=== PATIENT | male | born 1940 | race Caucasian/White ===

== ENCOUNTER 2017-08-13 08:13 | Emergency (ER) | payer MEDICARE ==
[~2017-08-13] VITALS: Ht 172.7 cm; Wt 68.0 kg
[~2017-08-13 08:13] MED LIST: FOLI5CAP PO; PROP40TA3 PO; SPIRCAP INH; VYTO10TA27 PO
[2017-08-13 08:28] VITALS: BP 134/62; PULSE 75; RESP 16; TEMP 97.9; O2SAT 98
[2017-08-13] MEDS ORDERED: FOLI400T PO (10:17)
[2017-08-13] MEDS ORDERED: CLIN150C14 PO (10:35)
--- NOTE | 2017-08-13 10:36 | PD ---
HPI Chief Complaint: Injury Time Seen by Provider: 10:30 Travel History International Travel<30 days: No Contact w/Intl Traveler<30days: No Traveled to known affect area: No History of Present Illness HPI 77-year-old male presents emergency with complaint of redness, swelling and drainage from the right elbow wound after tripping on a step and falling 6 days ago. Says he scraped his elbow on rug getting a "rug burn." Denies hitting his head or loss of consciousness. Denies neck pain or back pain. Has been ambulatory since. Denies anticoagulant therapy. Denies decreased range of motion, decreased strength, Paresthesias, loss of sensation of the affected extremity. Denies fever, vomiting. Has been using topical antibiotic ointment for wound care. Reports being up-to-date on tetanus vaccination. Allergies to penicillin. Dr. Garcia is primary care provider. Symptoms are mild in severity. Has no other medical complaints. No other modifying factors or associated signs and symptoms. PFSH Past Medical History Arthritis: Yes Asthma: No Autoimmune Disease: No Heart Rhythm Problems: No Cancer: No Cardiovascular Problems: Yes High Cholesterol: Yes Chest Pain: No Congestive Heart Failure: No COPD: Yes (Emphysema) Diminished Hearing: No Endocrine: No Genitourinary: No Hypertension: Yes Immune Disorder: No Musculoskeletal: Yes Neurologic: No Psychiatric: No Respiratory: Yes Sleep Apnea: No Past Surgical History Appendectomy: Yes Oral Surgery: Yes (Dental implants) Tonsillectomy: Yes Other Surgery: Yes (skin cancer) Social History Alcohol Use: Yes (3-4 beers daily) Tobacco Use: No Substance Use: No Allergies-Medications (Allergen,Severity, Reaction): Coded Allergies: penicillin G (Unverified Allergy, Severe, Hives, 08/13/17) Reported Meds & Prescriptions Reported Meds & Active Scripts Active Clindamycin (Clindamycin HCl) 150 Mg Cap 450 Mg PO Q6H 10 Days Reported Folic Acid 0.4 Mg Tab 400 Mcg PO DAILY Spiriva Handihaler (Tiotropium Inh) 18 Mcg Cap 18 Mcg INH DAILY 1 capsule = 18 mcg Vytorin (Ezetimibe-Simvastatin) 10-10 Mg Tab 1 Tab PO HS Propranolol (Propranolol HCl) 40 Mg Tab 40 Mg PO Q12HR Review of Systems Except as stated in HPI: all other systems reviewed are Neg Physical Exam Narrative GENERAL: Well-nourished, well-developed elderly, male patient, in no acute distress SKIN: Warm and dry. Right lateral forearm/elbow area with large skin tear/ avulsion with minimal amount of purulent drainage and with mild surrounding erythema and edema. No right axillary lymphadenopathy. No lymphangitis. HEAD: Atraumatic. Normocephalic. EYES: Pupils equal and round. No scleral icterus. No injection or drainage. ENT: Mucosa pink and moist. Airway patent. NECK: Trachea midline. CARDIOVASCULAR: Regular rate. RESPIRATORY: No accessory muscle use. GASTROINTESTINAL: Flat. MUSCULOSKELETAL: Right elbow with full range of motion; with edema; with erythema; without tenderness on palpation; with full vice president of marketing strength; sensory intact; 2+ radial pulse. Right Upper extremity supple and nontense with 2+ radial pulse and sensory intact. No obvious deformities. No clubbing. No cyanosis. No edema. NEUROLOGICAL: Awake and alert. Oriented 3. No obvious cranial nerve deficits. Motor grossly within normal limits. Normal speech. PSYCHIATRIC: Appropriate mood and affect; insight and judgment normal. Data Data Last Documented VS Vital Signs Date Time Temp Pulse Resp B/P (MAP) Pulse Ox O2 Delivery O2 Flow Rate FiO2 08/13/17 08:28 97.9 75 16 134/62 (86) 98 Orders Orders Ed Discharge Order (08/13/17 10:36) Wound Care (08/13/17 10:36) Wound Culture And Gram Stain (08/13/17 10:36) [facility] Medical Decision Making Medical Screen Exam Complete: Yes Emergency Medical Condition: Yes Medical Record Reviewed: Yes Differential Diagnosis Abrasion, avulsion, skin tear, wound infection Narrative Course 77-year-old male with of infected wound to his right forearm, elbow area after mechanical fall today 6 days ago. She is afebrile and nontoxic-appearing. He denies fever, vomiting. Wound culture pending. Wound care provided. Patient penicillin allergic. Clindamycin prescribed for home. Instructed patient to follow up with primary care provider. Patient verbalizes understanding and agreement with treatment plan. Patient is medically cleared and stable for discharge. Discussed reasons to return to the emergency department. Patient agrees with treatment plan. The patients vital signs are stable and the patient is stable for outpatient follow-up and treatment. Patient discharged home, stable and in no acute distress. Diagnosis Primary Impression: Wound infection Referrals: Primary Care Physician Patient Instructions: Acute Wound Care (DC), General Instructions, Wound Infection (ED) Additional Instructions: Oral antibiotics as prescribed Keep area clean and dry Topical antibiotic as directed and as needed for wound care Prefer to discharge instructions for acute wound care Keep area covered with bandage; change dressing 1-2 times daily or as needed Follow-up with primary care provider Return to the emergency department immediately with worsening of symptoms, particularly as discussed Med/Other Pt SpecificInfo: Prescription(s) given Scripts Clindamycin (Clindamycin) 150 Mg Cap 450 MG PO Q6H for Infection for 10 Days, #120 CAP 0 Refills Prov: Catherine Jeronimo 08/13/17 Disposition: 01 DISCHARGE HOME Condition: Stable Catherine Jeronimo Aug 13, 2017 10:36
== END 2017-08-13 10:56 | disposition home or self-care (01) ==
LOC: PHED 08:13 → PHEFT 10:56
DX: L08.89 Other specified local infections of the skin and subcutaneous tissue (principal); B95.7 Other staphylococcus as the cause of diseases classified elsewhere; J44.9 Chronic obstructive pulmonary disease, unspecified; I10 Essential (primary) hypertension; E78.00 Pure hypercholesterolemia, unspecified; X58.XXXA Exposure to other specified factors, initial encounter; W10.9XXA Fall (on) (from) unspecified stairs and steps, initial encounter; Z88.0 Allergy status to penicillin; Z79.899 Other long term (current) drug therapy
CPT/HCPCS: 86403; 87070; 87077; 87186; 99283

== ENCOUNTER 2017-08-16 18:31 | Emergency (ER) | payer MEDICARE ==
[~2017-08-16] VITALS: Ht 172.7 cm; Wt 68.1 kg
[~2017-08-16 18:31] MED LIST changes: +CLIN150C14 PO; +FOLI400T PO; -FOLI5CAP PO
[2017-08-16 19:10] VITALS: BP 161/65; PULSE 84; RESP 16; TEMP 97.9; O2SAT 96
[2017-08-16] MEDS ORDERED: BACT800T5 PO (20:51)
--- NOTE | 2017-08-16 20:51 | PD ---
HPI Chief Complaint: Skin Problem Time Seen by Provider: 20:41 Travel History International Travel<30 days: No Contact w/Intl Traveler<30days: No Traveled to known affect area: No History of Present Illness HPI The patient is a 77-year-old male that complains of redness swelling and drainage having tripped on a step and falling 9 days ago. He scraped his right elbow on a rug getting a "rug burn". He was put on clindamycin 450 mg 4 times a day and he has been taking it correctly. He apparently has not been elevating his right arm. Dr. Greer his primary care provider. He comes in today because of the swelling. The redness is disappearing. He noticed swelling around the elbow area. PFSH Past Medical History Arthritis: Yes Asthma: No Autoimmune Disease: No Heart Rhythm Problems: No Cancer: No Cardiovascular Problems: Yes (htn on meds) High Cholesterol: Yes Chest Pain: No Congestive Heart Failure: No COPD: Yes (Emphysema) Diminished Hearing: No Endocrine: No Genitourinary: No Hypertension: Yes Immune Disorder: No Musculoskeletal: Yes Neurologic: No Psychiatric: No Respiratory: Yes (copd) Sleep Apnea: No Past Surgical History Appendectomy: Yes Oral Surgery: Yes (Dental implants) Tonsillectomy: Yes Other Surgery: Yes (skin cancer) Social History Alcohol Use: Yes (3-4 beers daily) Tobacco Use: No Substance Use: No Allergies-Medications (Allergen,Severity, Reaction): Coded Allergies: penicillin G (Unverified Allergy, Severe, Hives, 08/16/17) Reported Meds & Prescriptions Reported Meds & Active Scripts Active Clindamycin (Clindamycin HCl) 150 Mg Cap 450 Mg PO Q6H 10 Days Reported Folic Acid 0.4 Mg Tab 400 Mcg PO DAILY Spiriva Handihaler (Tiotropium Inh) 18 Mcg Cap 18 Mcg INH DAILY 1 capsule = 18 mcg Vytorin (Ezetimibe-Simvastatin) 10-10 Mg Tab 1 Tab PO HS Propranolol (Propranolol HCl) 40 Mg Tab 40 Mg PO Q12HR Review of Systems Except as stated in HPI: all other systems reviewed are Neg Physical Exam Narrative GENERAL: Well-nourished, well-developed patient in minimal apparent distress with his right elbow discomfort. His vital signs show blood pressure 161/65 but are otherwise normal. SKIN: Focused skin assessment warm/dry. There are areas of edema with minimal splotchy redness around the right elbow. It is not particularly tender. There appears to be minimal infection but the patient apparently has not been elevating his right elbow. HEAD: Normocephalic. EYES: No scleral icterus. No injection or drainage. NECK: Supple, trachea midline. No JVD or lymphadenopathy. CARDIOVASCULAR: Regular rate and rhythm without murmurs, gallops, or rubs. RESPIRATORY: Breath sounds equal bilaterally. No accessory muscle use. GASTROINTESTINAL: Abdomen soft, non-tender, nondistended. MUSCULOSKELETAL: No cyanosis, or edema. BACK: Nontender without obvious deformity. No CVA tenderness. Data Data Last Documented VS Vital Signs Date Time Temp Pulse Resp B/P (MAP) Pulse Ox O2 Delivery O2 Flow Rate FiO2 08/16/17 19:10 97.9 84 16 161/65 (97) 96 MDM Medical Decision Making Medical Screen Exam Complete: Yes Emergency Medical Condition: Yes Medical Record Reviewed: Yes Differential Diagnosis Cellulitis right elbow, edema right elbow, cellulitis responding to antibiotic, cellulitis not responding to antibiotic. Narrative Course The patient appears to be responding to the clindamycin and he has minimal redness. He will have Septra DS added to his regimen but, more importantly, he needs to elevate his elbow above his heart. He is told this is the only way to get the swelling down. Most of the swelling appears to be edema and not from infection. Additional Instructions: Elevation is extremely important and is the only way the swelling will go down. The new antibiotic is taken one tablet twice daily for 10 days. Continue to take the clindamycin as you have been taking it. Follow-up with Dr. Rivera next week. Med/Other Pt SpecificInfo: Prescription(s) given Scripts Sulfamethoxazole-Trimethoprim (Bactrim DS) 800-160 Mg Tab 1 TAB PO BID for Infection, #20 TAB 0 Refills Prov: Harsh Cody MD 08/16/17 Disposition: 01 DISCHARGE HOME Condition: Stable Harsh Cody MD Aug 16, 2017 20:51
[2017-08-16] MEDS ORDERED: SULFAMETHOXAZOLE-TRIMETHOPRIM DS 800-160 MG TAB PO ONE (21:00)
[2017-08-16 22:14] VITALS: BP 158/75
== END 2017-08-16 22:18 | disposition home or self-care (01) ==
LOC: PHED 18:31
DX: L03.113 Cellulitis of right upper limb (principal)
CPT/HCPCS: 99283

== ENCOUNTER → 2017-08-27 | Outpatient (CLI) | payer MEDICARE ==
[~2017-08-27] MED LIST changes: +BACT800T5 PO
[2017-08-27 15:50] LABS: AUTOMATED NEUTROPHIL # 5.1 TH/MM3 (1.8-7.7); BASOPHIL % 0.3 % (0.0-2.0); EOSINOPHIL # 0.2 TH/MM3 (0-0.4); EOSINOPHIL % 2.8 % (0.0-4.0); HEMATOCRIT 40.1 % (39.0-51.0); HEMO FLAGS DIFF FINAL; LYMPH % 11.2 % (9.0-44.0); LYMPHOCYTE # 0.7 TH/MM3 (1.0-4.8); MEAN CELL VOLUME 96.9 FL (80.0-100.0); MEAN CORPUSCULAR HEMOGLOBIN 34.1 PG (27.0-34.0); MEAN CORPUSCULAR HGB CONC 35.2 % (32.0-36.0); MONO % 8.3 % (0.0-8.0); NEUT % 77.4 % (16.0-70.0); PLATELET COUNT 151 TH/MM3 (150-450); RED BLOOD COUNT 4.14 MIL/MM3 (4.50-5.90); RED CELL DISTRIBUTION WIDTH 12.8 % (11.6-17.2); WHITE BLOOD COUNT 6.6 TH/MM3 (4.0-11.0)
== END ==
LOC: CLAB 15:34
PROVIDERS: ATTEND Family Medicine
DX: T78.40XA Allergy, unspecified, initial encounter (principal)
CPT/HCPCS: 36415; 85025

== ENCOUNTER 2017-12-22 23:54 | Emergency (ER) | payer MEDICARE ==
[~2017-12-22] VITALS: Ht 172.7 cm; Wt 65.0 kg
[2017-12-23 00:16] VITALS: BP 180/99; PULSE 85; RESP 20; TEMP 98.5; O2SAT 96
[2017-12-23] MEDS ORDERED: UMEC1AER INH (00:22)
[2017-12-23] MEDS ORDERED: SODIUM CHLORIDE 0.9% FLUSH 10 ML FLUSH IVF PRN (00:30)
[2017-12-23] MEDS: RESP: ALBUTEROL 2.5 MG/IPRATROPIUM 0.5 MG NEB (SCH) INH ×2 (00:31→00:47)
--- NOTE | 2017-12-23 01:04 | RADRPT ---
EXAM DATE/TIME: 12/23/2017 00:43 [place] COMPARISON: No previous studies available for comparison. INDICATIONS : Shortness of breath. MEDICAL HISTORY : Emphysema. Chronic obstructive pulmonary disease. Hypertension SURGICAL HISTORY : Appendectomy. ENCOUNTER: Initial ACUITY: 1 day PAIN SCORE: 0/10 LOCATION: Bilateral chest FINDINGS: A single view of the chest demonstrates the lungs to be symmetrically hyperinflated with biapical emp hysematous changes. No confluent infiltrate or effusion. Heart size is normal. Osseous structures are intact with some degenerative spurring of the dorsal spine. CONCLUSION: Hyperinflation with biapical emphysematous changes. Jelani Rodriguez MD on December 23, 2017 at 1:02 Board Certified Radiologist. This report was verified electronically.
[2017-12-23 01:06] LABS: BASOPHIL # 0.1 TH/MM3 (0-0.2); BASOPHIL % 0.8 % (0.0-2.0); EOSINOPHIL # 0.3 TH/MM3 (0-0.4); EOSINOPHIL % 4.2 % (0.0-4.0); HEMATOCRIT 43.5 % (39.0-51.0); HEMOGLOBIN 14.6 GM/DL (13.0-17.0); LYMPH % 27.4 % (9.0-44.0); LYMPHOCYTE # 1.9 TH/MM3 (1.0-4.8); MEAN CELL VOLUME 97.1 FL (80.0-100.0); MEAN CORPUSCULAR HEMOGLOBIN 32.6 PG (27.0-34.0); MEAN CORPUSCULAR HGB CONC 33.6 % (32.0-36.0); MEAN PLATELET VOLUME 7.2 FL (7.0-11.0); MONO % 11.3 % (0.0-8.0); MONOCYTE # 0.8 TH/MM3 (0-0.9); NEUT % 56.3 % (16.0-70.0); PLATELET COUNT 203 TH/MM3 (150-450); RED BLOOD COUNT 4.48 MIL/MM3 (4.50-5.90); RED CELL DISTRIBUTION WIDTH 11.5 % (11.6-17.2); WHITE BLOOD COUNT 7.1 TH/MM3 (4.0-11.0)
[2017-12-23 01:12] LABS: CHLORIDE 94 MEQ/L (98-107); SODIUM (NA) 130 MEQ/L (136-145)
[2017-12-23 01:16] LABS: CALCIUM 8.8 MG/DL (8.5-10.1); PROTHROMBIN TIME - PATIENT 10.5 SEC (9.8-11.6)
[2017-12-23 01:17] LABS: BICARBONATE 28.4 MEQ/L (21.0-32.0); BLOOD UREA NITROGEN 12 MG/DL (7-18); GLUCOSE,RANDOM 81 MG/DL (74-106); MAGNESIUM 1.9 MG/DL (1.5-2.5)
[2017-12-23 01:20] LABS: CREATININE 0.71 MG/DL (0.60-1.30); GLOMERULAR FILTRATION RATE 108 ML/MIN (>89)
[2017-12-23 01:24] VITALS: BP 162/78; PULSE 81; RESP 20; O2SAT 94
[2017-12-23 01:25] LABS: TROPONIN I LESS THAN 0.02 NG/ML (0.02-0.05)
[2017-12-23] MEDS ORDERED: NEBULIZER/ADULT1 KIT (02:09)
[2017-12-23] MEDS ORDERED: IPRASOL INH (02:09)
[2017-12-23] MEDS ORDERED: PRED50 PO (02:09)
--- NOTE | 2017-12-23 02:10 | PD ---
HPI Chief Complaint: Respiratory Symptoms Time Seen by Provider: 00:18 Travel History International Travel<30 days: No Contact w/Intl Traveler<30days: No Traveled to known affect area: No History of Present Illness HPI 77-year-old male presents to the emergency department complaint of shortness of breath. Patient has history of COPD. Patient states that home medications are not providing relief. No report of fever or chills chest pain or pleuritic chest pain. Patient presented by EMS transport. Patient has been on recent new medication for his COPD. Patient states he does not feel this medication is providing him any relief. Patient received Solu-Medrol prior to arrival to the emergency department. Patient was given albuterol updrafts by senior j2ee developer. Patient denies any recent febrile illness or productive cough. Patient denies any orthopnea PND or lower extremity pain or swelling. No recent long distance travel protracted bedrest or surgical procedure. PFSH Past Medical History Narrative Medical Arthritis COPD dyslipidemia hypertension dental implants no tobacco use; nursing notes reviewed Arthritis: Yes Asthma: No Autoimmune Disease: No Heart Rhythm Problems: No Cancer: No Cardiovascular Problems: Yes High Cholesterol: Yes Chest Pain: No Congestive Heart Failure: No COPD: Yes Diminished Hearing: No Endocrine: No Genitourinary: No Hypertension: Yes Immune Disorder: No Implanted Vascular Access Dvce: Yes Musculoskeletal: Yes Neurologic: No Psychiatric: No Respiratory: Yes Sleep Apnea: No Tetanus Vaccination: Unknown Influenza Vaccination: Yes Past Surgical History Appendectomy: Yes Oral Surgery: Yes (DENTAL IMPLANTS) Tonsillectomy: Yes Other Surgery: Yes Social History Alcohol Use: Yes (2-3 BEERS DAILY) Tobacco Use: No (quit 12 years ago) Substance Use: No Allergies-Medications (Allergen,Severity, Reaction): Coded Allergies: penicillin G (Unverified Allergy, Severe, Hives, 12/23/17) Reported Meds & Prescriptions Reported Meds & Active Scripts Active Nebulizer/Adult Mask (N/A) 1 Kit Kit Kit .XX DIRECTED Duoneb (Ipratropium-Albuterol Neb) 0.5-2.5 Mg/3 Ml Neb 1 Nebule INH Q4HR NEB Prednisone 50 Mg Tab 50 Mg PO DAILY 4 Days Reported Anoro Ellipta Inh (Umeclidinium/Vilanterol) 62.5-25 Mcg/Act Aero 1 Puff INH DAILY Folic Acid 0.4 Mg Tab 400 Mcg PO DAILY Vytorin (Ezetimibe-Simvastatin) 10-10 Mg Tab 1 Tab PO HS Propranolol (Propranolol HCl) 40 Mg Tab 40 Mg PO Q12HR Review of Systems Except as stated in HPI: all other systems reviewed are Neg General / Constitutional: No: Fever, Chills HENT: No: Congestion Cardiovascular: No: Chest Pain or Discomfort Respiratory: Positive: Cough, Shortness of Breath, Wheezing Gastrointestinal: No: Nausea, Vomiting, Abdominal Pain Genitourinary: No: Flank Pain Musculoskeletal: No: Myalgias, Arthralgias, Edema, Pain Skin: No Rash Neurologic: No: Weakness Psychiatric: No: Anxiety Hematologic/Lymphatic: No: Lymph Node Enlargement Physical Exam Narrative GENERAL: Well-developed well-nourished male no acute distress no respiratory distress SKIN: Warm and dry. HEAD: Normocephalic. EYES: No scleral icterus. No injection or drainage. NECK: Supple, trachea midline. No JVD or lymphadenopathy. CARDIOVASCULAR: Regular rate and rhythm without murmurs, gallops, or rubs. RESPIRATORY: Breath sounds equal bilaterally with few expiratory wheezes. No accessory muscle use. GASTROINTESTINAL: Abdomen soft, non-tender, nondistended. MUSCULOSKELETAL: No cyanosis, or edema. BACK: Nontender without obvious deformity. No CVA tenderness. Data Data Last Documented VS Vital Signs Date Time Temp Pulse Resp B/P (MAP) Pulse Ox O2 Delivery O2 Flow Rate FiO2 12/23/17 02:12 80 18 160/77 (104) 94 12/23/17 01:24 Room Air 12/23/17 00:16 98.5 Orders Orders Complete Blood Count With Diff (12/23/17 00:18) Basic Metabolic Panel (Bmp) (12/23/17 00:18) B-Type Natriuretic Peptide (12/23/17 00:18) Act Partial Throm Time (Ptt) (12/23/17 00:18) Prothrombin Time / Inr (Pt) (12/23/17 00:18) Magnesium (Mg) (12/23/17 00:18) Ckmb (Isoenzyme) Profile (12/23/17 00:18) Troponin I (12/23/17 00:18) Blood Culture (12/23/17 00:18) Iv Access Insert/Monitor (12/23/17 00:18) Electrocardiogram (12/23/17 00:18) Ecg Monitoring (12/23/17 00:18) Oximetry (12/23/17 00:18) Oxygen Administration (12/23/17 00:18) Chest, Single Ap (12/23/17 00:18) Sodium Chloride 0.9% Flush (Ns Flush) (12/23/17 00:30) Albuterol-Ipratropium Neb (Duoneb Neb) (12/23/17 00:30) Lactic Acid (12/23/17 00:18) Ed Discharge Order (12/23/17 02:06) Labs Laboratory Tests Test 12/23/17 00:40 White Blood Count 7.1 TH/MM3 Red Blood Count 4.48 MIL/MM3 Hemoglobin 14.6 GM/DL Hematocrit 43.5 % Mean Corpuscular Volume 97.1 FL Mean Corpuscular Hemoglobin 32.6 PG Mean Corpuscular Hemoglobin Concent 33.6 % Red Cell Distribution Width 11.5 % Platelet Count 203 TH/MM3 Mean Platelet Volume 7.2 FL Neutrophils (%) (Auto) 56.3 % Lymphocytes (%) (Auto) 27.4 % Monocytes (%) (Auto) 11.3 % Eosinophils (%) (Auto) 4.2 % Basophils (%) (Auto) 0.8 % Neutrophils # (Auto) 4.0 TH/MM3 Lymphocytes # (Auto) 1.9 TH/MM3 Monocytes # (Auto) 0.8 TH/MM3 Eosinophils # (Auto) 0.3 TH/MM3 Basophils # (Auto) 0.1 TH/MM3 CBC Comment DIFF FINAL Differential Comment Prothrombin Time 10.5 SEC Prothromb Time International Ratio 1.0 RATIO Activated Partial Thromboplast Time 26.3 SEC Blood Urea Nitrogen 12 MG/DL Creatinine 0.71 MG/DL Random Glucose 81 MG/DL Calcium Level 8.8 MG/DL Magnesium Level 1.9 MG/DL Sodium Level 130 MEQ/L Potassium Level 4.1 MEQ/L Chloride Level 94 MEQ/L Carbon Dioxide Level 28.4 MEQ/L Anion Gap 8 MEQ/L Estimat Glomerular Filtration Rate 108 ML/MIN Lactic Acid Level 0.9 mmol/L Total Creatine Kinase 83 U/L Troponin I LESS THAN 0.02 NG/ML B-Type Natriuretic Peptide 42 PG/ML MDM Medical Decision Making Medical Screen Exam Complete: Yes Emergency Medical Condition: Yes Medical Record Reviewed: Yes Interpretation(s) CK 83, elevated troponin I less than 0.02, not elevated EKG: Normal sinus rhythm rate [address] elevation injury or ectopy noted Lactic acid: 0.9, not elevated BMP: 42, not elevated Last Impressions Chest X-Ray 12/23/17 0018 Signed Impressions: Service Date/Time: Saturday, December 23, 2017 00:43 - CONCLUSION: Hyperinflation with biapical emphysematous changes. Jelani Rodriguez MD CBC & BMP Diagram 12/23/17 00:40 Calcium Level 8.8, Magnesium Level 1.9 Vital Signs Date Time Temp Pulse Resp B/P (MAP) Pulse Ox O2 Delivery O2 Flow Rate FiO2 12/23/17 02:12 80 18 160/77 (104) 94 12/23/17 01:24 81 20 162/78 (106) 94 Room Air 12/23/17 00:24 Room Air 12/23/17 00:23 Room Air 12/23/17 00:23 95 Room Air 12/23/17 00:16 98.5 85 20 180/99 (126) 96 Differential Diagnosis Exacerbation COPD, pneumonia, bronchitis, ACS, VT, CHF, PE, adverse medication reaction Narrative Course Patient placed on monitor with continuous pulse oximetry and supplemental oxygen updraft treatments administered Specimens collected and sent for resulting Chest x-ray reveals no lobar infiltrate consistent with cardiac enzymes are found to be in normal range patient identified to have mild hyponatremia Patient amatory about the emergency department without desaturating and without becoming symptomatic; at this time patient appears stable for outpatient management does not have a nebulized machine at home given prescription for nebulizer kit as well as albuterol encouraged to follow closely with his managing primary care provider. Diagnosis Primary Impression: COPD exacerbation Referrals: Primary Care Physician 2 days Patient Instructions: General Instructions Additional Instructions: Use rescue inhaler as prescribed Use nebulizer with albuterol suspension every 4-6 hours as needed for wheezing or shortness of breath Complete course of steroid as prescribed Follow-up with your primary care provider on Sunday call office to schedule follow-up appointment Take acetaminophen/Tylenol as needed for fever 100.4F or greater Return to the emergency department for pain fever shortness of breath or any concerns Med/Other Pt SpecificInfo: Prescription(s) given Scripts Nebulizer/Adult Mask (Nebulizer/Adult Mask) 1 Kit Kit KIT .XX DIRECTED for Breathing Treatment, #1 0 Refills Prov: June Coronado MD 12/23/17 Ipratropium-Albuterol Neb (Duoneb) 0.5-2.5 Mg/3 Ml Neb 1 NEBULE INH Q4HR NEB for SHORTNESS OF BREATH, #120 NEBULE 0 Refills Prov: June Coronado MD 12/23/17 Prednisone (Prednisone) 50 Mg Tab 50 MG PO DAILY for 4 Days, #4 TAB 0 Refills Prov: June Coronado MD 12/23/17 Disposition: 01 DISCHARGE HOME Condition: Stable June Coronado MD Dec 23, 2017 02:10
[2017-12-23 02:12] VITALS: BP 160/77
--- NOTE | 2017-12-23 12:59 | EKG ---
Date Performed: 12/23/2017 Time Performed: 00:43:39 PTAGE: 77 years EKG: Sinus rhythm NORMAL ECG Since PREVIOUS TRACING , no significant change noted PREVIOUS TRACIN01/27/2013 04.35 DOCTOR: Speedy Elmore Interpretating Date/Time 12/23/2017 12:57:58
== END 2017-12-23 02:20 | disposition home or self-care (01) ==
LOC: PHEFT 23:54
DX: J44.1 Chronic obstructive pulmonary disease with (acute) exacerbation (principal); I10 Essential (primary) hypertension; E78.5 Hyperlipidemia, unspecified; Z79.899 Other long term (current) drug therapy; Z87.39 Personal history of other diseases of the musculoskeletal system and connective tissue; Z86.79 Personal history of other diseases of the circulatory system
CPT/HCPCS: 71045; 80048; 82550; 83605; 83735; 83880; 84484; 85025; 85610; 85730; 87040; 93005; 94640; 94664; 99285

== ENCOUNTER 2017-12-26 23:49 | Emergency (ER) | payer MEDICARE ==
[~2017-12-26] VITALS: Ht 172.7 cm; Wt 65.9 kg
[~2017-12-26 23:49] MED LIST changes: -BACT800T5 PO; -CLIN150C14 PO; +IPRASOL INH; +NEBULIZER/ADULT1 KIT; +PRED50 PO; -SPIRCAP INH; +UMEC1AER INH
[2017-12-26 23:59] VITALS: BP 196/112; PULSE 92; RESP 24; TEMP 97.8; O2SAT 100
--- NOTE | 2017-12-27 01:28 | PD ---
HPI . Shortness of breath Chief Complaint: Respiratory Symptoms Time Seen by Provider: 00:38 Travel History International Travel<30 days: No Contact w/Intl Traveler<30days: No Traveled to known affect area: No History of Present Illness HPI This patient presents with a chief complaint of shortness of breath. Onset was tonight. No known exacerbating factors. No associated sputum production or fever. No chest pain. Symptoms are improved following treatment by EMS with Solu-Medrol, albuterol nebs 3 and Atrovent neb 1. Patient has a history of COPD. He is not on oxygen at home. PFSH Past Medical History Arthritis: Yes Asthma: No Autoimmune Disease: No Heart Rhythm Problems: No Cancer: No Cardiovascular Problems: Yes High Cholesterol: Yes Chest Pain: No Congestive Heart Failure: No COPD: Yes Diminished Hearing: No Endocrine: No Genitourinary: No Hypertension: Yes Immune Disorder: No Implanted Vascular Access Dvce: Yes Musculoskeletal: Yes Neurologic: No Psychiatric: No Respiratory: Yes Sleep Apnea: No Past Surgical History Appendectomy: Yes Oral Surgery: Yes (DENTAL IMPLANTS) Tonsillectomy: Yes Other Surgery: Yes Social History Alcohol Use: Yes (2-3 BEERS DAILY) Tobacco Use: No (quit 12 years ago) Substance Use: No Allergies-Medications (Allergen,Severity, Reaction): Coded Allergies: penicillin G (Unverified Allergy, Severe, Hives, 12/27/17) Reported Meds & Prescriptions Reported Meds & Active Scripts Active Nebulizer/Adult Mask (N/A) 1 Kit Kit Kit .XX DIRECTED Duoneb (Ipratropium-Albuterol Neb) 0.5-2.5 Mg/3 Ml Neb 1 Nebule INH Q4HR NEB Prednisone 50 Mg Tab 50 Mg PO DAILY 4 Days Reported Anoro Ellipta Inh (Umeclidinium/Vilanterol) 62.5-25 Mcg/Act Aero 1 Puff INH DAILY Folic Acid 0.4 Mg Tab 400 Mcg PO DAILY Vytorin (Ezetimibe-Simvastatin) 10-10 Mg Tab 1 Tab PO HS Propranolol (Propranolol HCl) 40 Mg Tab 40 Mg PO Q12HR Review of Systems Except as stated in HPI: all other systems reviewed are Neg General / Constitutional: No: Fever, Chills Cardiovascular: No: Chest Pain or Discomfort Respiratory: Positive: Shortness of Breath, No: Cough Physical Exam Narrative GENERAL: Patient seems to be comfortable on 2 L of oxygen. SKIN: warm/dry. Normal color and turgor. HEAD: Normocephalic. Atraumatic. EYES: Pupils equal and round. No scleral icterus. No injection or drainage. ENT: No nasal bleeding or discharge. Mucous membranes pink and moist. NECK: Trachea midline. Full range of motion without pain.. CARDIOVASCULAR: Regular rate and rhythm. Heart sounds normal. RESPIRATORY: No accessory muscle use. Diminished breath sounds throughout. Breath sounds equal bilaterally. MUSCULOSKELETAL: No obvious deformities. NEUROLOGICAL: Awake and alert. No obvious cranial nerve deficits. Motor grossly within normal limits. Normal speech. PSYCHIATRIC: Appropriate mood and affect; insight and judgment normal. Data Data Last Documented VS Vital Signs Date Time Temp Pulse Resp B/P (MAP) Pulse Ox O2 Delivery O2 Flow Rate FiO2 12/27/17 00:08 99 Nasal Cannula 2.00 12/26/17 23:59 97.8 92 24 196/112 (140) Orders Orders Albuterol-Ipratropium Neb (Duoneb Neb) (12/27/17 01:30) [facility] Medical Decision Making Medical Screen Exam Complete: Yes Emergency Medical Condition: Yes Medical Record Reviewed: Yes (Patient was seen here just a few days ago with similar symptoms. He had a complete workup which was negative. He was eventually discharged home with a prescription for nebulizer machine, nebulizer solution and prednisone 50 mg daily. He is still on the redness.) Interpretation(s) EKG shows a sinus rhythm with a rate of 91. No ST segment elevation or depression. Differential Diagnosis Differential diagnosis of dyspnea includes but is not limited to congestive heart failure, pneumonia, wheezing, pneumothorax, pulmonary embolism Narrative Course This patient with COPD presents with acutely worsened dyspnea tonight. He has no signs or symptoms worrisome for pneumonia. Specifically, no sputum production and no fever. His symptoms are improved following treatment per EMS with Solu-Medrol and nebulizers. Breath sounds remain diminished. I have ordered another set of nebs. He will be reassessed following this. Following stacked nebs, oxygen was removed. He is now maintaining his oxygen saturation at 96% on room air. He is stable for discharge to home. Diagnosis Primary Impression: COPD with acute exacerbation Patient Instructions: COPD (Chronic Obstructive Pulmonary Disease) (DC), General Instructions Disposition: DISCHARGE HOME Condition: Stable Annetta Dias MD Dec 27, 2017 01:28
[2017-12-27] MEDS: RESP: ALBUTEROL 2.5 MG/IPRATROPIUM 0.5 MG NEB (SCH) INH (02:18)
[2017-12-27 04:01] VITALS: O2SAT 96
[2017-12-27 05:17] VITALS: BP 175/72
--- NOTE | 2017-12-27 14:14 | EKG ---
Date Performed: 12/27/2017 Time Performed: 00:00:55 PTAGE: 77 years EKG: Sinus rhythm NORMAL ECG No significant change from prior electrocardiogram. PREVIOUS TRACING : 12/23/2017 00.43 DOCTOR: Arpan Hwang Interpretating Date/Time 12/27/2017 14:12:58
== END 2017-12-27 05:17 | disposition home or self-care (01) ==
LOC: NEPC 23:49
DX: J44.1 Chronic obstructive pulmonary disease with (acute) exacerbation (principal); M19.90 Unspecified osteoarthritis, unspecified site; E78.00 Pure hypercholesterolemia, unspecified; I10 Essential (primary) hypertension; Z87.891 Personal history of nicotine dependence
CPT/HCPCS: 93005; 94640; 94664; 99283

== ENCOUNTER → 2017-12-28 | Outpatient (CLI) | payer MEDICARE ==
[2017-12-28 14:25] LABS: BASOPHIL % 0.3 % (0.0-2.0); EOSINOPHIL # 0.2 TH/MM3 (0-0.4); EOSINOPHIL % 1.2 % (0.0-4.0); HEMOGLOBIN 14.5 GM/DL (13.0-17.0); LYMPH % 14.9 % (9.0-44.0); MEAN CELL VOLUME 97.8 FL (80.0-100.0); MEAN CORPUSCULAR HEMOGLOBIN 33.7 PG (27.0-34.0); MEAN CORPUSCULAR HGB CONC 34.5 % (32.0-36.0); MEAN PLATELET VOLUME 7.9 FL (7.0-11.0); MONO % 10.7 % (0.0-8.0); MONOCYTE # 1.5 TH/MM3 (0-0.9); NEUT % 72.9 % (16.0-70.0); PLATELET COUNT 241 TH/MM3 (150-450); RED BLOOD COUNT 4.29 MIL/MM3 (4.50-5.90); RED CELL DISTRIBUTION WIDTH 12.4 % (11.6-17.2); WHITE BLOOD COUNT 13.7 TH/MM3 (4.0-11.0)
== END ==
LOC: PLAB 11:28
PROVIDERS: ATTEND Family Medicine
DX: J44.9 Chronic obstructive pulmonary disease, unspecified (principal)
CPT/HCPCS: 36415; 85025

== ENCOUNTER 2018-01-29 13:59 | Observation (INO) | payer MEDICARE ==
[~2018-01-29] VITALS: Ht 167.6 cm; Wt 61.0 kg
[~2018-01-29 13:59] MED LIST changes: +IOHEXOL 350 MG/ML 10 ML VIAL (for RAD DIAG) IVCONTRAST ONE
--- NOTE | 2018-01-29 14:11 | PD ---
HPI Chief Complaint: Failure to thrive Time Seen by Provider: 14:11 Travel History International Travel<30 days: No Contact w/Intl Traveler<30days: No Traveled to known affect area: No History of Present Illness HPI 78-year-old male was sent to the emergency room by his case operator for failure to thrive, poor appetite, constipation and weight loss. Patient has history of COPD and is under the care of the case operator. As per the case operator record appetite was better when he was on steroid. Patient was saturating 98% on 2 L of oxygen via nasal cannula in the emergency room. He does not appear to be in any significant distress. Upon asking patient says that he lost 30 pounds in 3 years. Lately for past 2 weeks he has not been eating or drinking well. His last bowel movement was 5 days ago but he attributes that to not having eaten or drank enough. He has been urinating 4-5 times a day. Heart rate and blood pressure are within normal limits. His daughter is here in the room who continues to impress upon the fact that patient 's condition changed after his respiratory issues started to worsen. They have a pulse ox machine at home that they have been using up until a few days ago when his oxygen saturation consistently was in the mid 90s. However the machine has been broken for past few days. However, the daughter is convinced that his oxygen saturation has declined in that time frame. Patient denies of any pain anywhere. No history of nausea vomiting. PFSH Past Medical History Narrative Medical List of his past medical, surgical, social and family history reviewed from the nursing note. Arthritis: Yes Asthma: No Autoimmune Disease: No Heart Rhythm Problems: No Cancer: No Cardiovascular Problems: Yes High Cholesterol: Yes Chest Pain: No Congestive Heart Failure: No COPD: Yes Diminished Hearing: No Endocrine: No Genitourinary: No Hypertension: Yes Immune Disorder: No Implanted Vascular Access Dvce: Yes Musculoskeletal: Yes Neurologic: No Psychiatric: No Respiratory: Yes Sleep Apnea: No Past Surgical History Appendectomy: Yes Oral Surgery: Yes (DENTAL IMPLANTS) Tonsillectomy: Yes Other Surgery: Yes Social History Alcohol Use: Yes (2-3 BEERS DAILY) Tobacco Use: No (quit 12 years ago) Substance Use: No Allergies-Medications (Allergen,Severity, Reaction): Coded Allergies: penicillin G (Unverified Allergy, Severe, Hives, 3/22/18) Comments List of his allergies reviewed from the nursing note. Reported Meds & Prescriptions Reported Meds & Active Scripts Active Duoneb (Ipratropium-Albuterol Neb) 0.5-2.5 Mg/3 Ml Neb 1 Nebule INH Q4HR NEB Reported Anoro Ellipta Inh (Umeclidinium/Vilanterol) 62.5-25 Mcg/Act Aero 1 Puff INH DAILY Folic Acid 0.4 Mg Tab 400 Mcg PO DAILY Vytorin (Ezetimibe-Simvastatin) 10-10 Mg Tab 1 Tab PO HS Propranolol (Propranolol HCl) 40 Mg Tab 40 Mg PO Q12HR Narrative Medication List of his home medications reviewed from the nursing note. Review of Systems Except as stated in HPI: all other systems reviewed are Neg General / Constitutional: Positive: Weight Loss Gastrointestinal: Positive: Constipation Physical Exam Narrative GENERAL: Awake, alert, elderly, no obvious distress SKIN: Focused skin assessment warm/dry. HEAD: Atraumatic. Normocephalic. EYES: Pupils equal and round. No scleral icterus. No injection or drainage. ENT: No nasal bleeding or discharge. Mucous membranes pink and moist. NECK: Trachea midline. No JVD. CARDIOVASCULAR: Regular rate and rhythm. No murmur appreciated. RESPIRATORY: No accessory muscle use. Clear to auscultation. Breath sounds equal bilaterally. GASTROINTESTINAL: Abdomen soft, non-tender, nondistended. Hepatic and splenic margins not palpable. MUSCULOSKELETAL: No obvious deformities. No clubbing. No cyanosis. No edema. NEUROLOGICAL: Awake and alert. No obvious cranial nerve deficits. Motor grossly within normal limits. Normal speech. PSYCHIATRIC: Appropriate mood and affect; insight and judgment normal. Data Data Last Documented VS Vital Signs Date Time Temp Pulse Resp B/P (MAP) Pulse Ox O2 Delivery O2 Flow Rate FiO2 01/29/18 15:43 88 17 154/73 (100) 96 Nasal Cannula 2.00 01/29/18 14:15 98.1 Orders Orders Complete Blood Count With Diff (01/29/18 14:24) Comprehensive Metabolic Panel (01/29/18 14:24) Lipase (01/29/18 14:24) Urinalysis - C+S If Indicated (01/29/18 14:24) Ct Abd/Pel W/O Iv Contrast (01/29/18 14:24) Iv Access Insert/Monitor (01/29/18 14:24) Ecg Monitoring (01/29/18 14:24) Oximetry (01/29/18 14:24) Sodium Chlor 0.9% 1000 Ml Inj (Ns 1000 M (01/29/18 14:24) Sodium Chloride 0.9% Flush (Ns Flush) (01/29/18 14:30) Electrocardiogram (01/29/18 14:24) Chest, Pa & Lat (01/29/18 ) B-Type Natriuretic Peptide (01/29/18 14:24) Troponin I (01/29/18 14:24) Labs Laboratory Tests Test 01/29/18 14:30 White Blood Count 6.0 TH/MM3 Red Blood Count 4.19 MIL/MM3 Hemoglobin 14.0 GM/DL Hematocrit 39.7 % Mean Corpuscular Volume 94.6 FL Mean Corpuscular Hemoglobin 33.3 PG Mean Corpuscular Hemoglobin Concent 35.2 % Red Cell Distribution Width 12.7 % Platelet Count 252 TH/MM3 Mean Platelet Volume 7.1 FL Neutrophils (%) (Auto) 77.5 % Lymphocytes (%) (Auto) 10.5 % Monocytes (%) (Auto) 10.6 % Eosinophils (%) (Auto) 1.0 % Basophils (%) (Auto) 0.4 % Neutrophils # (Auto) 4.7 TH/MM3 Lymphocytes # (Auto) 0.6 TH/MM3 Monocytes # (Auto) 0.6 TH/MM3 Eosinophils # (Auto) 0.1 TH/MM3 Basophils # (Auto) 0.0 TH/MM3 CBC Comment DIFF FINAL Differential Comment Blood Urea Nitrogen 15 MG/DL Creatinine 0.87 MG/DL Random Glucose 78 MG/DL Total Protein 7.7 GM/DL Albumin 2.9 GM/DL Calcium Level 9.1 MG/DL Alkaline Phosphatase 39 U/L Aspartate Amino Transf (AST/SGOT) 59 U/L Alanine Aminotransferase (ALT/SGPT) 49 U/L Total Bilirubin 1.1 MG/DL Sodium Level 129 MEQ/L Potassium Level 4.6 MEQ/L Chloride Level 94 MEQ/L Carbon Dioxide Level 23.1 MEQ/L Anion Gap 12 MEQ/L Estimat Glomerular Filtration Rate 85 ML/MIN Troponin I LESS THAN 0.02 NG/ML B-Type Natriuretic Peptide 21 PG/ML Lipase 165 U/L [facility] Medical Decision Making Medical Screen Exam Complete: Yes Emergency Medical Condition: Yes Medical Record Reviewed: Yes Interpretation(s) Twelve-lead EKG was reviewed by me. Normal sinus rhythm, normal axis, nonspecific ST-T wave changes. Heart rate of 84 bpm. Differential Diagnosis Dehydration, electrolyte abnormality, obstipation, COPD Narrative Course 5:31 PM blood test results are back and patient has slight hyponatremia. He has been given 1 L of IV fluid bolus. Rest of the test results are within normal limit including his chest x-ray and abdomen and pelvis. Abdomen pelvis shows cholelithiasis as an incidental finding. Without any abdominal pain I find it hard to attribute this to his symptoms. I went in the room to talk to the patient as well as the daughter to relay them about the test results. The daughter is fixated on his respiratory issues. I tried to explain to her that the patient is looking very comfortable and lung sounds are clear and chest x- ray is negative. However she attributes his symptoms to his respiratory problem. She is concerned that his oxygen saturation went down to 90% on room air since he usually runs in the mid 90s with a home pulse ox. I told her I would admit the patient for observation and they can watch his oxygen number overnight. I discussed the case with the hospitalist was accepted the patient. She will order a d-dimer as well. Procedures EKG Prior to Arrival: No Diagnosis Primary Impression: Failure to thrive in adult Additional Impression: Hypoxia Admitting Information Admitting Physician Requests: Observation Scripts Alprazolam (Xanax) 0.25 Mg Tab 0.25 MG PO Q6H Y for ANXIETY, #12 TAB 0 Refills Prov: Martín Graf DO 01/31/18 Prednisone (Prednisone) 10 Mg Tab 10 MG PO DAILY for COPD for 4 Days, #4 TAB 0 Refills Prov: Martín Graf DO 01/31/18 Prednisone (Prednisone) 20 Mg Tab 20 MG PO DAILY for COPD, #4 TAB 0 Refills Prov: Martín Graf DO 01/31/18 Prednisone (Prednisone) 20 Mg Tab 20 MG PO BID for COPD, #6 TAB Prov: Martín Graf DO 01/31/18 Oxygen (O2) (Oxygen (O2)) Device LITER ELIANA.CANULA CONTINUOUS for Prevent Hypoxemia, #2 Oxygen Concentrator Portable Gaseous 2 L/min via Nasal Canula Continuous For 99 months Prov: Martín Graf DO 01/31/18 Nitesh Troncoso MD Jan 29, 2018 14:11
[2018-01-29 14:15] VITALS: BP 154/73; PULSE 85; RESP 18; TEMP 98.1; O2SAT 96
[2018-01-29] MEDS ORDERED: SODIUM CHLOR 0.9% 1000 ML INJ 1,000 ML IV SCH (14:24)
[2018-01-29] MEDS ORDERED: SODIUM CHLORIDE 0.9% FLUSH 10 ML FLUSH IV FLUSH PRN ×2 (14:30→17:45)
[2018-01-29 14:32] VITALS: O2SAT 90
[2018-01-29 15:14] LABS: AUTOMATED NEUTROPHIL # 4.7 TH/MM3 (1.8-7.7); BASOPHIL % 0.4 % (0.0-2.0); EOSINOPHIL # 0.1 TH/MM3 (0-0.4); HEMATOCRIT 39.7 % (39.0-51.0); LYMPH % 10.5 % (9.0-44.0); LYMPHOCYTE # 0.6 TH/MM3 (1.0-4.8); MEAN CELL VOLUME 94.6 FL (80.0-100.0); MEAN CORPUSCULAR HEMOGLOBIN 33.3 PG (27.0-34.0); MEAN CORPUSCULAR HGB CONC 35.2 % (32.0-36.0); MEAN PLATELET VOLUME 7.1 FL (7.0-11.0); MONO % 10.6 % (0.0-8.0); MONOCYTE # 0.6 TH/MM3 (0-0.9); NEUT % 77.5 % (16.0-70.0); PLATELET COUNT 252 TH/MM3 (150-450); RED BLOOD COUNT 4.19 MIL/MM3 (4.50-5.90); RED CELL DISTRIBUTION WIDTH 12.7 % (11.6-17.2)
[2018-01-29 15:33] LABS: ALKALINE PHOSPHATASE 39 U/L (45-117); TOTAL BILIRUBIN ADULT 1.1 MG/DL (0.2-1.0); TOTAL PROTEIN 7.7 GM/DL (6.4-8.2); TROPONIN I LESS THAN 0.02 NG/ML (0.02-0.05)
[2018-01-29 15:43] VITALS: BP 154/73; PULSE 88; RESP 17; O2SAT 96
--- NOTE | 2018-01-29 15:49 | RADRPT ---
EXAM DATE/TIME: 01/29/2018 15:03 [facility] COMPARISON: CT ABDOMEN & PELVIS W/O CONTRAST, January 29, 2018, 15:22. INDICATIONS : Short of breath today. Patient stated he was unable to catch his breath today. MEDICAL HISTORY : Emphysema. Chronic obstructive pulmonary disease. Hypertension. SURGICAL HISTORY : Appendectomy. ENCOUNTER: Initial ACUITY: 1 day PAIN SCORE: 0/10 LOCATION: Bilateral chest FINDINGS: Mild lower lobe predominant diffuse interstitial prominence. No significant focal pleural-parenchymal opacities. Cardiomediastinal contours are within normal limits. Bony thorax is intact. CONCLUSION: 1. Senescent changes without acute abnormality. Ismael Pérez MD on January 29, 2018 at 15:45 Board Certified Radiologist. This report was verified electronically.
--- NOTE | 2018-01-29 15:54 | RADRPT ---
EXAM DATE/TIME: 01/29/2018 15:22 [facility] COMPARISON: No previous studies available for comparison. INDICATIONS : Weight loss,weakness,shortness of breath ORAL CONTRAST: No oral contrast ingested. RADIATION DOSE: 6.76 CTDIvol (mGy) MEDICAL HISTORY : Cardiovascular disease. Hypertension. Chronic obstructive pulmonary disease. SURGICAL HISTORY : Appendectomy. ENCOUNTER: Initial ACUITY: 1 day PAIN SCALE: 0/10 LOCATION: Abdomen TECHNIQUE: Volumetric scanning of the abdomen and pelvis was performed. Using automated exposure control and adjustment of the mA and/or kV according to patient size, radiation dose was kept as low as reasonably achievable to obtain optimal diagnostic quality images. DICOM format image data is av ailable electronically for review and comparison. FINDINGS: LOWER LUNGS: Senescent changes without focal adenopathy. LIVER: Homogeneous density without lesion. There is no dilation of the biliary tree. Probable sm all calcified gallstones in the gallbladder. SPLEEN: Normal size without lesion. PANCREAS: Within normal limits. KIDNEYS: Symmetrical in size without evidence for hydronephrosis or radiopaque renal calculi. ADRENAL GLANDS: Within normal limits. VASCULAR: Prominent atherosclerotic calcifications in the distal abdominal aorta and proximal caty ac arteries. BOWEL/MESENTERY: The stomach, small bowel, and colon demonstrate no acute abnormality. There is no free intraperitoneal air or fluid. ABDOMINAL WALL: Within normal limits. RETROPERITONEUM: There is no lymphadenopathy. BLADDER: No wall thickening or mass. REPRODUCTIVE: Nonspecific prostate enlargement. INGUINAL: There is no lymphadenopathy or hernia. MUSCULOSKELETAL: Degenerative spondylosis of the lumbar spine. No focal abnormal lytic or blastic bony lesions. CONCLUSION: 1. No acute CT abnormality in the abdomen or pelvis. 2. Ancillary findings includes cholelithiasis, prominent atherosclerotic calcifications of the distal aorta and common iliac arteries, and degenerative spondylosis of the lumbar spine. Ismael Pérez MD on January 29, 2018 at 15:47 Board Certified Radiologist. This report was verified electronically.
[2018-01-29 16:06] LABS: ALBUMIN 2.9 GM/DL (3.4-5.0); ALT (GPT) 49 U/L (12-78); AST (GOT) 59 U/L (15-37); BICARBONATE 23.1 MEQ/L (21.0-32.0); BLOOD UREA NITROGEN 15 MG/DL (7-18); CALCIUM 9.1 MG/DL (8.5-10.1); CHLORIDE 94 MEQ/L (98-107); CREATININE 0.87 MG/DL (0.60-1.30); GLOMERULAR FILTRATION RATE 85 ML/MIN (>89); GLUCOSE,RANDOM 78 MG/DL (74-106); SODIUM (NA) 129 MEQ/L (136-145)
[2018-01-29] MEDS: RESP: ALBUTEROL 2.5 MG/IPRATROPIUM 0.5 MG NEB (SCH) INH ×2 (17:30→17:45)
[2018-01-29] MEDS ORDERED: RESP: ALBUTEROL 2.5 MG/IPRATROPIUM 0.5 MG NEB (PRN) NEB ×2 (17:45→20:30)
[2018-01-29] MEDS ORDERED: NALOXONE HCL 0.4 MG/ML AMP IV PUSH PRN (17:45)
[2018-01-29 18:19] LABS: BACTERIA, URINE RARE /hpf; BILIRUBIN, URINE NEG (NEG); BLOOD, URINE NEG (NEG); GLUCOSE,URINE NEG (NEG); KETONE, URINE 40 mg/dL (NEG); MUCUS URINE FEW /lpf (OCC); NITRITE,URINE NEG (NEG); PH, URINE 6.5 (5.0-8.5); SQUAMOUS EPITHELIAL CELL URINE <1 /hpf (0-5); URINE COLOR YELLOW (YELLW/STRAW); URINE LEUKOCYTE ESTERASE NEG (NEG)
[2018-01-29 18:43] VITALS: BP 152/76; PULSE 90; RESP 17; O2SAT 96
[2018-01-29 19:11] VITALS: BP 113/57; PULSE 96; RESP 16; TEMP 98.1; O2SAT 94
--- NOTE | 2018-01-29 20:34 | HHI.HP ---
[facility] Laverne Rivera MD Admission Diagnosis Failure to thrive, hypoxia Diagnoses: Travel History International Travel<30 Days: No Contact w/Intl Traveler <30 Da: No Traveled to Known Affected Are: No History of Present Illness 78-year-old male with a past medical history significant for hypertension and hyperlipidemia presents to the emergency department from his primary care provider's office for the evaluation of shortness of breath/weakness. The patient reports his symptoms have been going on for approximately 3 weeks. He states his shortness of breath is worse when he lies flat or when he walks. He does not have a known history of CHF. He denies any bilateral lower extremity edema. No cough. No fevers/chills. No abdominal pain. No nausea/vomiting/ diarrhea. No chest pain. No lateralizing signs/symptoms. Patient also complains of a 30 pound weight loss over the past 3 years. Review of Systems Except as stated in HPI: all other systems reviewed are Neg Past Family Social History Past Medical History Hypertension Hyperlipidemia Past Surgical History Tonsillectomy Appendectomy Reported Medications Reported Meds & Active Scripts Active Duoneb (Ipratropium-Albuterol Neb) 0.5-2.5 Mg/3 Ml Neb 1 Nebule INH Q4HR NEB Prednisone 50 Mg Tab 50 Mg PO DAILY 4 Days Reported Anoro Ellipta Inh (Umeclidinium/Vilanterol) 62.5-25 Mcg/Act Aero 1 Puff INH DAILY Folic Acid 0.4 Mg Tab 400 Mcg PO DAILY Vytorin (Ezetimibe-Simvastatin) 10-10 Mg Tab 1 Tab PO HS Propranolol (Propranolol HCl) 40 Mg Tab 40 Mg PO Q12HR Allergies: Coded Allergies: penicillin G (Unverified Allergy, Severe, Hives, 12/27/17) Family History Mother with CAD Social History Negative for tobacco and illicit drugs. Drinks approximately 2-3 beers daily. Physical Exam Vital Signs Vital Signs Date Time Temp Pulse Resp B/P (MAP) Pulse Ox O2 Delivery O2 Flow Rate FiO2 01/29/18 19:11 98.1 96 16 113/57 (75) 94 01/29/18 18:43 90 17 152/76 (101) 96 Nasal Cannula 01/29/18 15:43 88 17 154/73 (100) 96 Nasal Cannula 2.00 01/29/18 14:32 90 Room Air 01/29/18 14:19 84 17 98 Nasal Cannula 2.00 01/29/18 14:15 98.1 85 18 154/73 (100) 96 Physical Exam GENERAL: male lying in bed SKIN: No rashes, ecchymoses or lesions. Cool and dry. HEAD: Atraumatic. Normocephalic. No temporal or scalp tenderness. EYES: Pupils equal round and reactive. Extraocular motions intact. No scleral icterus. No injection or drainage. ENT: Nose without bleeding, purulent drainage or septal hematoma. Throat without erythema, tonsillar hypertrophy or exudate. Uvula midline. Airway patent. NECK: Trachea midline. No JVD or lymphadenopathy. Supple, nontender, no meningeal signs. CARDIOVASCULAR: Regular rate and rhythm without murmurs, gallops, or rubs. RESPIRATORY: Clear to auscultation. Breath sounds equal bilaterally. No wheezes , rales, or rhonchi. GASTROINTESTINAL: Abdomen soft, non-tender, nondistended. No hepato-splenomegaly , or palpable masses. No guarding. MUSCULOSKELETAL: Extremities without clubbing, cyanosis, or edema. No joint tenderness, effusion, or edema noted. No calf tenderness. NEUROLOGICAL: Awake and alert. Cranial nerves II through XII intact. Motor and sensory grossly within normal limits. Normal speech. Laboratory Laboratory Tests Test 01/29/18 14:30 01/29/18 17:40 White Blood Count 6.0 Red Blood Count 4.19 Hemoglobin 14.0 Hematocrit 39.7 Mean Corpuscular Volume 94.6 Mean Corpuscular Hemoglobin 33.3 Mean Corpuscular Hemoglobin Concent 35.2 Red Cell Distribution Width 12.7 Platelet Count 252 Mean Platelet Volume 7.1 Neutrophils (%) (Auto) 77.5 Lymphocytes (%) (Auto) 10.5 Monocytes (%) (Auto) 10.6 Eosinophils (%) (Auto) 1.0 Basophils (%) (Auto) 0.4 Neutrophils # (Auto) 4.7 Lymphocytes # (Auto) 0.6 Monocytes # (Auto) 0.6 Eosinophils # (Auto) 0.1 Basophils # (Auto) 0.0 CBC Comment DIFF FINAL Differential Comment Blood Urea Nitrogen 15 Creatinine 0.87 Random Glucose 78 Total Protein 7.7 Albumin 2.9 Calcium Level 9.1 Alkaline Phosphatase 39 Aspartate Amino Transf (AST/SGOT) 59 Alanine Aminotransferase (ALT/SGPT) 49 Total Bilirubin 1.1 Sodium Level 129 Potassium Level 4.6 Chloride Level 94 Carbon Dioxide Level 23.1 Anion Gap 12 Estimat Glomerular Filtration Rate 85 Troponin I LESS THAN 0.02 Lipase 165 Urine Color YELLOW Urine Turbidity CLEAR Urine pH 6.5 Urine Specific [place] 1.021 Urine Protein TRACE Urine Glucose (UA) NEG Urine Ketones 40 Urine Occult Blood NEG Urine Nitrite NEG Urine Bilirubin NEG Urine Urobilinogen 2.0 Urine Leukocyte Esterase NEG Urine RBC 2 Urine WBC 1 Urine Squamous Epithelial Cells <1 Urine Bacteria RARE Urine Mucus FEW Microscopic Urinalysis Comment CULT NOT INDICATED Result Diagram: 01/29/18 1430 01/29/18 1430 Caprini VTE Risk Assessment Caprini VTE Risk Assessment: Mod/High Risk (score >= 2) Caprini Risk Assessment Model Point Value = 1 Point Value = 2 Point Value = 3 Point Value = 5 Age 41-60 Minor surgery BMI > 25 kg/m2 Swollen legs Varicose veins or History of unexplained or recurrent spontaneous Oral contraceptives or hormone replacement Sepsis (< 1 month) Serious lung disease, including pneumonia (< 1 month) Abnormal pulmonary function Acute myocardial infarction Congestive heart failure (< 1 month) History of inflammatory bowel disease Medical patient at bed rest Age 61-74 Arthroscopic surgery Major open surgery (> 45 min) Laparoscopic surgery (> 45 min) Malignancy Confined to bed (> 72 hours) Immobilizing plaster cast Central venous access Age >= 75 History of VTE Family history of VTE Factor V Leiden Prothrombin [id number] Lupus anticoagulant Anticardiolipin antibodies Elevated serum homocysteine Heparin-induced thrombocytopenia Other congenital or acquired thrombophilia Stroke (< 1 month) Elective arthroplasty Hip, pelvis, or leg fracture Acute spinal cord injury (< 1 month) Prophylaxis Regimen Total Risk Factor Score Risk Level Prophylaxis Regimen 0-1 Low Early ambulation 2 Moderate Order ONE of the following: *Sequential Compression Device (SCD) *Heparin 5000 units SQ BID 3-4 Higher Order ONE of the following medications: *Heparin 5000 units SQ TID *Enoxaparin/Lovenox 40 mg SQ daily (WT < 150 kg, CrCl > 30 mL/min) *Enoxaparin/Lovenox 30 mg SQ daily (WT < 150 kg, CrCl > 10-29 mL/min) *Enoxaparin/Lovenox 30 mg SQ BID (WT < 150 kg, CrCl > 30 mL/min) AND/OR *Sequential Compression Device (SCD) 5 or more Highest Order ONE of the following medications: *Heparin 5000 units SQ TID (Preferred with Epidurals) *Enoxaparin/Lovenox 40 mg SQ daily (WT < 150 kg, CrCl > 30 mL/min) *Enoxaparin/Lovenox 30 mg SQ daily (WT < 150 kg, CrCl > 10-29 mL/min) *Enoxaparin/Lovenox 30 mg SQ BID (WT < 150 kg, CrCl > 30 mL/min) AND *Sequential Compression Device (SCD) Assessment and Plan Assessment and Plan Assessment/plan: 1. Shortness of breath No acute process, personally reviewed BNP pending No history of CHF/COPD Supplemental oxygen as needed DuoNeb's 2. Hypertension/hyperlipidemia Continue home medication FEN Heart healthy diet Electrolytes: monitor and replete prn Heparin Galilea Moy MD Jan 29, 2018 20:34
[2018-01-29] MEDS: SODIUM CHLORIDE 0.9% FLUSH 10 ML FLUSH IV FLUSH SCH (21:00)
[2018-01-29] MEDS: HEPARIN SODIUM - SQ 10,000 UNITS/ML VIAL SQ SCH (21:00)
[2018-01-29 22:29] VITALS: O2SAT 95
[2018-01-30] VITALS (8 sets, daily range): BP systolic 98–152; BP diastolic 48–69; PULSE 86–100; RESP 16–20; TEMP 98–98.5; O2SAT 93–96
[2018-01-30 06:06] LABS: AUTOMATED NEUTROPHIL # 4.3 TH/MM3 (1.8-7.7); BASOPHIL % 0.5 % (0.0-2.0); EOSINOPHIL # 0.1 TH/MM3 (0-0.4); EOSINOPHIL % 1.1 % (0.0-4.0); HEMATOCRIT 35.2 % (39.0-51.0); HEMOGLOBIN 12.6 GM/DL (13.0-17.0); LYMPH % 12.5 % (9.0-44.0); LYMPHOCYTE # 0.7 TH/MM3 (1.0-4.8); MEAN CELL VOLUME 93.6 FL (80.0-100.0); MEAN CORPUSCULAR HEMOGLOBIN 33.6 PG (27.0-34.0); MEAN CORPUSCULAR HGB CONC 35.9 % (32.0-36.0); MEAN PLATELET VOLUME 6.9 FL (7.0-11.0); MONO % 11.2 % (0.0-8.0); MONOCYTE # 0.6 TH/MM3 (0-0.9); NEUT % 74.7 % (16.0-70.0); PLATELET COUNT 249 TH/MM3 (150-450); RED BLOOD COUNT 3.76 MIL/MM3 (4.50-5.90); RED CELL DISTRIBUTION WIDTH 12.4 % (11.6-17.2); WHITE BLOOD COUNT 5.7 TH/MM3 (4.0-11.0)
[2018-01-30 06:28] LABS: BICARBONATE 20.4 MEQ/L (21.0-32.0); CALCIUM 8.4 MG/DL (8.5-10.1); CREATININE 0.72 MG/DL (0.60-1.30)
[2018-01-30] MEDS: SODIUM CHLORIDE 0.9% FLUSH 10 ML FLUSH IV FLUSH SCH ×2 (09:00→21:00)
--- NOTE | 2018-01-30 09:18 | EKG ---
Date Performed: 01/29/2018 Time Performed: 14:39:12 PTAGE: 78 years EKG: Sinus rhythm NORMAL ECG PREVIOUS TRACING : 12/27/2017 00.00 DOCTOR: Neel Roberts Interpretating Date/Time 01/30/2018 09:17:02
[2018-01-30] MEDS ORDERED: ALPRAZolam 0.25 MG TAB PO ONE (09:30)
--- NOTE | 2018-01-30 09:40 | HHI.PR ---
Subjective Remarks The patient appeared comfortable. He said his breathing has been at 50% lately. He denies any chest pain. He has been having a cough. He does endorse poor appetite and weight loss. Discussed with daughter and nursing. Objective Vitals Vital Signs Date Time Temp Pulse Resp B/P (MAP) Pulse Ox O2 Delivery O2 Flow Rate FiO2 01/30/18 07:10 98.0 86 16 145/69 (94) 95 01/30/18 05:03 98.1 89 16 136/64 (88) 96 01/30/18 01:12 98.0 97 16 152/67 (95) 93 01/29/18 22:29 95 Nasal Cannula 2.00 01/29/18 19:11 98.1 96 16 113/57 (75) 94 01/29/18 18:43 90 17 152/76 (101) 96 Nasal Cannula 01/29/18 15:43 88 17 154/73 (100) 96 Nasal Cannula 2.00 01/29/18 14:32 90 Room Air 01/29/18 14:19 84 17 98 Nasal Cannula 2.00 01/29/18 14:15 98.1 85 18 154/73 (100) 96 I/O 01/29/18 01/29/18 01/29/18 01/30/18 01/30/18 01/30/18 07:00 15:00 23:00 07:00 15:00 23:00 Intake Total 1000 ml Balance 1000 ml Intake IV Total 1000 ml Result Diagram: 01/30/18 0446 01/30/18 0446 Imaging Last Impressions Abdomen/Pelvis CT 01/29/18 1424 Signed Impressions: Service Date/Time: Monday, January 29, 2018 15:22 - CONCLUSION: 1. No acute CT abnormality in the abdomen or pelvis. 2. Ancillary findings includes cholelithiasis, prominent atherosclerotic calcifications of the distal aorta and common iliac arteries, and degenerative spondylosis of the lumbar spine. Ismael Pérez MD Chest X-Ray 01/29/18 0000 Signed Impressions: Service Date/Time: Monday, January 29, 2018 15:03 - CONCLUSION: 1. Senescent changes without acute abnormality. Ismael Pérez MD Objective Remarks GENERAL: No apparent distress. SKIN: No rashes, ecchymoses or lesions. Cool and dry. HEAD: Atraumatic. Normocephalic. No temporal or scalp tenderness. EYES: Pupils equal round and reactive. Extraocular motions intact. No scleral icterus. No injection or drainage. ENT: Nose without bleeding, purulent drainage or septal hematoma. Throat without erythema, tonsillar hypertrophy or exudate. Uvula midline. Airway patent. NECK: Trachea midline. No JVD or lymphadenopathy. Supple, nontender, no meningeal signs. CARDIOVASCULAR: Regular rate and rhythm without murmurs, gallops, or rubs. RESPIRATORY: Clear to auscultation. Breath sounds equal bilaterally. No wheezes , rales, or rhonchi. GASTROINTESTINAL: Abdomen soft, non-tender, nondistended. No hepato-splenomegaly , or palpable masses. No guarding. MUSCULOSKELETAL: Extremities without clubbing, cyanosis, or edema. No joint tenderness, effusion, or edema noted. NEUROLOGICAL: Awake and alert. Cranial nerves II through XII intact. Motor and sensory grossly within normal limits. Normal speech. PSYCH: Mood and affect appropriate. Medications and IVs Current Medications Medications (Trade) Dose Ordered Sig/Sondra Route Start Time Stop Time Status Last Admin (NS Flush) 2 ml UNSCH PRN IV FLUSH 01/29/18 17:45 (NS Flush) 2 ml BID IV FLUSH 01/29/18 21:00 (Narcan Inj) 0.4 mg UNSCH PRN IV PUSH 01/29/18 17:45 (Duoneb Neb) 1 ampule Q4HR NEB PRN NEB 01/29/18 20:30 (Heparin Inj) 5,000 units Q12HR SQ 01/29/18 21:00 01/29/18 21:00 A/P Assessment and Plan COPD exacerbation No acute process on CXR. Pt referred to the hospital by his home mortgage disclosure act specialist. Not on home oxygen. BNP low. - Supplemental oxygen as needed. - DuoNeb's standing and as needed. - check a D-dimer. D/c V/Q scan. - pulmonology consult requested. - PT. Encourage ambulation. - IS. Hypertension Relatively well controlled. - Continue home medication. Weight loss S/t decreased PO intake. - check TSH, A1c. Hyponatremia Likely s/t decreased PO intake. - monitor BMP. PPx: Heparin Martín Graf DO Jan 30, 2018 09:40
--- NOTE | 2018-01-30 13:05 | MB ---
cc: Brenna Sanz MD DATE: 01/30/2018 HISTORY OF PRESENT ILLNESS: The patient is a 78-year-old white male whom I have followed for several years with moderate COPD. He has recently had an exacerbation, thought to be due to allergen exposure, but has been going on for 4-6 weeks. Since that time, despite outpatient management he just was not feeling well and actually sought a second opinion with Dr. Brambila a firearms model maker in [facility]. He was treated with IV therapy, as an outpatient in their outpatient clinic for 4-5 days and felt much better. However, shortly after that, he began to decline again and was put on a Medrol Dosepak, which again helped. However, he came to the hospital yesterday with continued shortness of breath and in general just failure to thrive. He denies pain. He has had a little cough, but no purulent sputum or hemoptysis. The shortness of breath has become extreme with minimal activity. He has seen Dr. Nieto in the past. I do not have those records, but his daughter tells me that nothing specific was identified other than hypertension. He has not been back to see him. Another complaint is that he is just failing to eat well and he is losing weight. However, he is drinking beer regularly on a daily basis and his daughter tells me up to 6 beers a day. I did notice that his liver function was slightly elevated on the admission laboratory. He was a former smoker but quit years ago. PAST MEDICAL HISTORY: History of elevated cholesterol, hypertension. CT scan reveals atherosclerotic changes. He has had a prior appendectomy and tonsillectomy. SOCIAL HISTORY: Beer drinking noted above, was a former smoker but quit over a decade ago. No other illicit drug use. ALLERGIES: PENICILLIN. CURRENT MEDICATIONS: Reviewed in the EMR. PHYSICAL EXAMINATION: VITAL SIGNS: 98 degrees, 120/60, pulse 90, respirations 18, O2 saturation 96% on 2 liters. HEENT: Mucous membranes are moist. No adenopathy in the neck or supraclavicular region. CHEST: Diminished but entirely clear. No wheezes or rales. No congestion. Regular rhythm. No harsh murmur. ABDOMEN: Soft. EXTREMITIES: No peripheral edema or cyanosis. LABORATORY DATA: Sodium 129, BUN 15, creatinine 0.8. Bilirubin is mildly elevated. AST 59, albumin 2.9. BNP 21. D-dimer is elevated 1.12. White count is 5700 with a hemoglobin of 12.6, although that was after fluid resuscitation, it was 14 on presentation. Chest x-ray, chronic changes, no obvious abnormality to explain his current symptoms. ASSESSMENT AND DISCUSSION: Mr. Rincon presents with a 6-8 week history of dyspnea, it is getting worse. He does have an elevated D-dimer. I have ordered a CTA to be certain he does not have an occult malignancy or thromboembolic disease. He does have a longstanding history of hypertension as well as an elevated cholesterol, may have diastolic dysfunction or ischemic heart disease, so I have ordered an echo. I will also order a spirometry and an arterial blood gas on room air to reassess his COPD. At present, he is stable, feels a little better after nebulized aerosol treatments. We will continue those, but we will not add additional steroids at this point as he has had those recently. Further diagnostic and/or therapeutic intervention will depend on his response and ongoing clinical course, as well as the results of these initial studies. R. MD LEVON Covington/ADRIANNA , 12:48 PM , 01:04 PM
--- NOTE | 2018-01-30 14:10 | RADRPT ---
EXAM DATE/TIME: 01/30/2018 13:41 [facility] COMPARISON: No previous studies available for comparison. INDICATIONS : Shortness of breath. Elevated D-dimer. IV CONTRAST: 50 cc Omnipaque 350 (iohexol) IV RADIATION DOSE: 7.71 CTDIvol (mGy) MEDICAL HISTORY : Emphysema. SURGICAL HISTORY : None. ENCOUNTER: Initial ACUITY: 1 day PAIN SCALE: 0/10 LOCATION: chest TECHNIQUE: Volumetric scanning of the chest was performed using a pulmonary embolism protocol MIP images were re constructed. Using automated exposure control and adjustment of the mA and/or kV according to patien t size, radiation dose was kept as low as reasonably achievable to obtain optimal diagnostic quality images. DICOM format image data is available electronically for review and comparison. Follow-up recommendations for detected pulmonary nodules are based at a minimum on nodule size and pa tient risk factors according to Fleischner Society Guidelines. FINDINGS: PULMONARY ARTERIES: No filling defects are seen in the pulmonary arteries through the segmental level. LUNGS: Biapical fibrotic scarring is noted. Emphysematous changes are noted bilaterally. Posterior bibasilar atelectatic changes are noted. There is no pneumothorax . No concerning pulmonary nodule is visuali zed. PLEURAE: There is no pleural effusion. Minimal posterior basilar pleural thickening is noted. MEDIASTINUM: There is good visualization of the great vessels of the middle mediastinum. Several mildly prominent mediastinal lymph nodes are noted within the prevascular, right paratracheal and precarinal spaces wi th the largest measuring 1.6 x 0.8 cm. Coronary artery calcifications are noted. MUSCULOSKELETAL: Within normal limits for patient age. MISCELLANEOUS: The visualized upper abdominal organs demonstrate no acute abnormality. CONCLUSION: 1. No evidence of pulmonary embolism. 2. Biapical fibrotic scarring and moderate emphysematous changes bilaterally. 3. Posterior bibasilar atelectatic changes and minimal bilateral posterior pleural thickening. 4. Nonspecific mildly prominent mediastinal lymph nodes. 5. Coronary artery calcifications. Bishop Hernández MD on January 30, 2018 at 14:01 Board Certified Radiologist. This report was verified electronically.
[2018-01-30] MEDS: HEPARIN SODIUM - SQ 10,000 UNITS/ML VIAL SQ SCH ×2 (16:18→21:35)
[2018-01-30 16:26] LABS: HEMOGLOBIN A1C 5.3 % (4.3-6.0)
[2018-01-30] MEDS: RESP: ALBUTEROL 2.5 MG/IPRATROPIUM 0.5 MG NEB (SCH) NEB ×2 (17:06→19:57)
[2018-01-30] MEDS: DEXT 5%-NACL 0.9% 1000 ML INJ 1,000 ML IV SCH (19:34)
[2018-01-30] MEDS ORDERED: EZETIMIBE 10 MG TAB PO SCH (21:00)
[2018-01-30] MEDS ORDERED: PRAVASTATIN SOD 20 MG TAB PO SCH (21:00)
[2018-01-30] MEDS: PROPRANOLOL HCL 40 MG TAB PO SCH (21:33)
[2018-01-31 01:27] VITALS: BP 133/67; PULSE 76; RESP 16; TEMP 98.2; O2SAT 98
[2018-01-31] MEDS: DEXT 5%-NACL 0.9% 1000 ML INJ 1,000 ML IV SCH (05:17)
[2018-01-31 05:35] VITALS: BP 101/54; PULSE 74; RESP 16; TEMP 98.6; O2SAT 96
[2018-01-31 08:00] VITALS: BP 134/68; PULSE 82; RESP 20; TEMP 95.7; O2SAT 96
[2018-01-31 08:20] VITALS: O2SAT 96
[2018-01-31] MEDS: RESP: ALBUTEROL 2.5 MG/IPRATROPIUM 0.5 MG NEB (SCH) NEB ×2 (08:20→12:45)
--- NOTE | 2018-01-31 08:31 | RSPPFT ---
DATE OF PROCEDURE: 01/30/18 COMMENTS: VOLUMES DYNAMIC: FVC moderately reduced; FEV1 severely reduced. FLOWS: FEV1% and FEF 25-75 severely reduced. IMPRESSION: Severe obstructive ventilatory defect with significant improvement post-bronchodilator.
[2018-01-31] MEDS ORDERED: FOLIC ACID 1 MG TAB PO SCH (09:00)
[2018-01-31] MEDS ORDERED: UMECLIDINIUM 62.5 MCG/VILANTEROL 25 MCG INHALER INH SCH (09:00)
[2018-01-31] MEDS: PROPRANOLOL HCL 40 MG TAB PO SCH (09:10)
[2018-01-31] MEDS: SODIUM CHLORIDE 0.9% FLUSH 10 ML FLUSH IV FLUSH SCH (09:11)
[2018-01-31] MEDS: HEPARIN SODIUM - SQ 10,000 UNITS/ML VIAL SQ SCH (09:12)
[2018-01-31] MEDS ORDERED: BISACODYL 10 MG SUPP RECTAL ONE (11:15)
[2018-01-31] MEDS ORDERED: POLYETHYLENE GLYCOL 17 GM PKG PO SCH (11:15)
[2018-01-31] MEDS ORDERED: DOCUSATE SODIUM 50 MG/SENNA 8.6 MG TAB PO SCH (11:15)
--- NOTE | 2018-01-31 11:20 | HHI.PR ---
Subjective Remarks The patient was resting in bed. He said he was having some shortness of breath with exertion. He also says that he has not had a bowel movement in 7 days. He says he is not eating much. Discussed with family and nursing. Objective Vitals Vital Signs Date Time Temp Pulse Resp B/P (MAP) Pulse Ox O2 Delivery O2 Flow Rate FiO2 01/31/18 08:20 96 Nasal Cannula 2.00 01/31/18 08:00 95.7 82 20 134/68 (90) 96 01/31/18 05:35 98.6 74 16 101/54 (70) 96 01/31/18 01:27 98.2 76 16 133/67 (89) 98 01/30/18 20:57 98.2 100 16 98/48 (65) 94 01/30/18 19:59 93 Nasal Cannula 2.00 01/30/18 15:26 98.3 100 20 146/68 (94) 93 I/O 01/30/18 01/30/18 01/30/18 01/31/18 01/31/18 01/31/18 07:00 15:00 23:00 07:00 15:00 23:00 Output Total 500 ml Balance -500 ml Output Urine Total 500 ml Result Diagram: 01/30/18 0446 01/30/18 [address] Angiography 01/30/18 0000 Signed Impressions: Service Date/Time: Tuesday, January 30, 2018 13:41 - CONCLUSION: 1. No evidence of pulmonary embolism. 2. Biapical fibrotic scarring and moderate emphysematous changes bilaterally. 3. Posterior bibasilar atelectatic changes and minimal bilateral posterior pleural thickening. 4. Nonspecific mildly prominent mediastinal lymph nodes. 5. Coronary artery calcifications. Bishop Hernández MD Abdomen/Pelvis CT 01/29/18 1424 Signed Impressions: Service Date/Time: Monday, January 29, 2018 15:22 - CONCLUSION: 1. No acute CT abnormality in the abdomen or pelvis. 2. Ancillary findings includes cholelithiasis, prominent atherosclerotic calcifications of the distal aorta and common iliac arteries, and degenerative spondylosis of the lumbar spine. Ismael Pérez MD Chest X-Ray 01/29/18 0000 Signed Impressions: Service Date/Time: Jaz, January 29, 2018 15:03 - CONCLUSION: 1. Senescent changes without acute abnormality. Ismael Pérez MD Objective Remarks GENERAL: No apparent distress. SKIN: No rashes, ecchymoses or lesions. Cool and dry. HEAD: Atraumatic. Normocephalic. No temporal or scalp tenderness. EYES: Pupils equal round and reactive. Extraocular motions intact. No scleral icterus. No injection or drainage. ENT: Nose without bleeding, purulent drainage or septal hematoma. Throat without erythema, tonsillar hypertrophy or exudate. Uvula midline. Airway patent. NECK: Trachea midline. No JVD or lymphadenopathy. Supple, nontender, no meningeal signs. CARDIOVASCULAR: Regular rate and rhythm without murmurs, gallops, or rubs. RESPIRATORY: Clear to auscultation. Breath sounds equal bilaterally. No wheezes , rales, or rhonchi. GASTROINTESTINAL: Abdomen soft, non-tender, nondistended. No hepato-splenomegaly , or palpable masses. No guarding. MUSCULOSKELETAL: Extremities without clubbing, cyanosis, or edema. No joint tenderness, effusion, or edema noted. NEUROLOGICAL: Awake and alert. Cranial nerves II through XII intact. Motor and sensory grossly within normal limits. Normal speech. PSYCH: Mood and affect appropriate. Medications and IVs Current Medications Medications (Trade) Dose Ordered Sig/Sondra Route Start Time Stop Time Status Last Admin (NS Flush) 2 ml UNSCH PRN IV FLUSH 01/29/18 17:45 (NS Flush) 2 ml BID IV FLUSH 01/29/18 21:00 01/31/18 09:11 (Narcan Inj) 0.4 mg UNSCH PRN IV PUSH 01/29/18 17:45 (Duoneb Neb) 1 ampule Q4HR NEB PRN NEB 01/29/18 20:30 01/30/18 09:36 (Heparin Inj) 5,000 units Q12HR SQ 01/29/18 21:00 01/31/18 09:12 (Folate) 1 mg DAILY PO 01/31/18 09:00 01/31/18 09:11 (Inderal) 40 mg Q12HR PO 01/30/18 21:00 01/31/18 09:10 (Zetia) 10 mg HS PO 01/30/18 21:00 01/30/18 21:34 (Pravachol) 20 mg HS PO 01/30/18 21:00 01/30/18 21:33 (Duoneb Neb) 1 ampule TID NEB NEB 01/30/18 14:00 01/31/18 08:20 Dextrose/Sodium Chloride 1,000 ml @ 75 mls/hr [id number] IV 01/30/18 16:30 01/31/18 19:09 01/31/18 05:17 (Leny-Colace) 1 tab BID PO 01/31/18 11:15 UNV (Miralax) 17 gm DAILY PO 01/31/18 11:15 UNV (Dulcolax Supp) 10 mg ONCE ONCE RECTAL 01/31/18 11:15 01/31/18 11:16 UNV A/P Assessment and Plan COPD exacerbation No acute process on CXR. Pt referred to the hospital by his attendance officer. Not on home oxygen. BNP low. Pulmonology consult appreciated. CTA showed: No evidence of pulmonary embolism; Biapical fibrotic scarring and moderate emphysematous changes bilaterally; Posterior bibasilar atelectatic changes and minimal bilateral posterior pleural thickening; Nonspecific mildly prominent mediastinal lymph nodes. - Supplemental oxygen as needed. - DuoNeb's standing and as needed. - pulmonology following. - PT. Encourage ambulation. - IS. - walk test requested. Hypertension Relatively well controlled. - Continue home medication. Weight loss S/t decreased PO intake. TSH and A1c unremarkable. - gyroscopic instrument tester consult requested. - add Ensure to meals. Hyponatremia Likely s/t decreased PO intake. - monitor BMP. PPx: Heparin Discharge Planning Await pulmonology clearance, walk test Martín Graf DO Jan 31, 2018 11:20
[2018-01-31 12:00] VITALS: BP 154/71; PULSE 86; RESP 20; TEMP 95.8; O2SAT 94
--- NOTE | 2018-01-31 12:09 | RADRPT ---
EXAM DATE/TIME: 01/31/2018 11:44 [facility] COMPARISON: CT ABDOMEN & PELVIS W/O CONTRAST, January 29, 2018, 15:22. INDICATIONS : Weight loss, constipation for one week, evaluate for ileus MEDICAL HISTORY : Cerebrovascular disease. Hypertension Chronic obstructive pulmonary disease. SURGICAL HISTORY : Appendectomy. ENCOUNTER: Subsequent ACUITY: 4 - 6 days PAIN SCORE: 0/10 LOCATION: Bilateral abdomen FINDINGS: Supine view of the abdomen was performed. There is a single loop of mildly prominent air-containing b owel in the left upper mid abdomen. The remainder of the gas pattern is unremarkable gas and stool no dawn segmentally in the colon. There is no free air or mass effect. The osseous structures are unremar kable. CONCLUSION: Single loop of mildly prominent air-containing bowel in the left upper midabdomen of unclear significance and may be transient. The remainder of the bowel gas pattern is unremarkable. Martín Dias MD on January 31, 2018 at 12:06 Board Certified Radiologist. This report was verified electronically.
[2018-01-31] MEDS ORDERED: predniSONE 20 MG TAB PO SCH (12:30)
[2018-01-31] MEDS ORDERED: OXYGENDME NAS.CANULA (13:19)
--- NOTE | 2018-01-31 13:20 | HHI.FF ---
Face to Face Verification Diagnosis: (1) Severe chronic obstructive pulmonary disease (2) Failure to thrive in adult (3) Hypoxia Physical Therapy Order: Evaluate and Treat, Improve ambulation, Strength and gait training Home Health Nursing Order: Medical education Signs/symptoms of disease process Oxygen administration education Medication education-adverse effect Nursing assessment with vital signs I have seen patient Bishop Rincon on 01/31/18. My clinical findings support the need for the requested home health care services because: Patient has SOB Deconditioned w/ increased weakness Limited ability to care for self I certify that my clinical findings support that this patient is homebound because: Hx COPD- exertion dyspnea/weakness Unsafe to leave home unassisted Martín Graf DO Jan 31, 2018 13:20
--- NOTE | 2018-01-31 13:20 | HHI.DCPOC ---
Discharge Care Plan Diagnosis: (1) Severe chronic obstructive pulmonary disease (2) Failure to thrive in adult (3) Hypoxia Goals to Promote Your Health * To prevent worsening of your condition and complications * To maintain your health at the optimal level Directions to Meet Your Goals Take your medications as prescribed Follow your dietary instruction Follow activity as directed Keep your appointments as scheduled Take your immunizations and boosters as scheduled If your symptoms worsen call your PCP, if no PCP go to Urgent Care Center or Emergency Room Smoking is Dangerous to Your Health. Avoid second hand smoke Call the 24-hour hour crisis hotline for domestic abuse at Martín Graf DO Jan 31, 2018 13:19
[2018-01-31] MEDS ORDERED: PRED10 PO (13:24)
[2018-01-31] MEDS ORDERED: PRED20 PO ×2 (13:24)
[2018-01-31] MEDS ORDERED: ALPR.25 PO (13:49)
== END 2018-01-31 18:26 | disposition home or self-care (01) ==
LOC: NEPC 13:59 → NEDA 16:34 → NEDH 16:34 → UNDOADMIN 16:34 → NEPGCP 19:44
PROVIDERS: ADMIT Hospitalist; ATTEND Hospitalist
DX: J44.1 Chronic obstructive pulmonary disease with (acute) exacerbation (principal); R62.7 Adult failure to thrive; R09.02 Hypoxemia; I10 Essential (primary) hypertension; E78.5 Hyperlipidemia, unspecified; E78.00 Pure hypercholesterolemia, unspecified; E87.1 Hypo-osmolality and hyponatremia; F41.9 Anxiety disorder, unspecified; K59.00 Constipation, unspecified; K80.20 Calculus of gallbladder without cholecystitis without obstruction; Z87.891 Personal history of nicotine dependence; Z90.49 Acquired absence of other specified parts of digestive tract; Z82.49 Family history of ischemic heart disease and other diseases of the circulatory system
CPT/HCPCS: 36600; 71046; 71275; 74018; 74176; 80048; 80053; 81001; 82607; 82805; 83036; 83690; 83880; 84443; 84484; 85025; 85379; 93005; 94060; 94150; 94618; 94640; 94664; 96360; 96361; 96372; 97161; 99285; G0378; G8987; G8988; J1644; J7030; J7042; J7512; Q9967

== ENCOUNTER 2018-02-18 23:10 | Emergency (ER) | payer MEDICARE ==
[~2018-02-18 23:10] MED LIST changes: +ALPR.25 PO; -IOHEXOL 350 MG/ML 10 ML VIAL (for RAD DIAG) IVCONTRAST ONE; -NEBULIZER/ADULT1 KIT; +OXYGENDME NAS.CANULA; +PRED10 PO; +PRED20 PO; -PRED50 PO
[2018-02-18] MEDS ORDERED: RESP: ALBUTEROL 2.5 MG/3 ML NEB (SCH) INH ONE (23:15)
[2018-02-18] MEDS ORDERED: SODIUM CHLORIDE 0.9% FLUSH 10 ML FLUSH IVF PRN (23:15)
[2018-02-18 23:16] VITALS: BP 177/92; PULSE 90; RESP 24; TEMP 98.1; O2SAT 99
[2018-02-18 23:22] VITALS: O2SAT 99
[2018-02-18 23:27] LABS: AUTOMATED NEUTROPHIL # 4.5 TH/MM3 (1.8-7.7); BASOPHIL # 0.1 TH/MM3 (0-0.2); BASOPHIL % 0.8 % (0.0-2.0); EOSINOPHIL # 0.3 TH/MM3 (0-0.4); EOSINOPHIL % 4.1 % (0.0-4.0); HEMATOCRIT 38.8 % (39.0-51.0); HEMOGLOBIN 13.1 GM/DL (13.0-17.0); LYMPH % 27.8 % (9.0-44.0); LYMPHOCYTE # 2.4 TH/MM3 (1.0-4.8); MEAN CORPUSCULAR HEMOGLOBIN 32.3 PG (27.0-34.0); MEAN CORPUSCULAR HGB CONC 33.7 % (32.0-36.0); MONOCYTE # 1.2 TH/MM3 (0-0.9); NEUT % 53.3 % (16.0-70.0); PLATELET COUNT 177 TH/MM3 (150-450); RED BLOOD COUNT 4.04 MIL/MM3 (4.50-5.90); RED CELL DISTRIBUTION WIDTH 12.9 % (11.6-17.2); WHITE BLOOD COUNT 8.5 TH/MM3 (4.0-11.0)
[2018-02-18 23:35] LABS: CHLORIDE 101 MEQ/L (98-107); SODIUM (NA) 134 MEQ/L (136-145)
[2018-02-18 23:37] LABS: CALCIUM 8.7 MG/DL (8.5-10.1)
[2018-02-18 23:38] LABS: BICARBONATE 26.4 MEQ/L (21.0-32.0); BLOOD UREA NITROGEN 8 MG/DL (7-18); GLUCOSE,RANDOM 92 MG/DL (74-106)
[2018-02-18 23:41] LABS: CREATININE 0.61 MG/DL (0.60-1.30); GLOMERULAR FILTRATION RATE 128 ML/MIN (>89)
--- NOTE | 2018-02-18 23:42 | RADRPT ---
EXAM DATE/TIME: 02/18/2018 23:22 [facility] COMPARISON: No previous studies available for comparison. INDICATIONS : Shortness of breath. MEDICAL HISTORY : Emphysema. SURGICAL HISTORY : None. ENCOUNTER: Initial ACUITY: 1 day PAIN SCORE: 0/10 LOCATION: Bilateral chest FINDINGS: A single view of the chest demonstrates the lungs to be symmetrically aerated without evidence of mas s, infiltrate or effusion. Minimal linear scarring at the right lung. Emphysema with apical scarring. The cardiomediastinal contours are unremarkable. Osseous structures are intact. CONCLUSION: 1. No acute findings. Underlying emphysema with scattered parenchymal scarring and apical pleural thi ckening. Hector Rm MD on February 18, 2018 at 23:40 Board Certified Radiologist. This report was verified electronically.
--- NOTE | 2018-02-18 23:43 | PD ---
HPI Chief Complaint: Respiratory Symptoms Time Seen by Provider: 23:13 Travel History International Travel<30 days: No Contact w/Intl Traveler<30days: No Traveled to known affect area: No History of Present Illness HPI 78-year-old male with history of COPD, hypertension, hyper lipidemia, who presents via EMS with respiratory distress. According to the paramedics, over the last hour, he was becoming more short of breath. He denies any chest pain, chest pressure. He reports using his home albuterol nebulizers however was not improving. EMS was called. When they arrived, they found him on his home oxygen. His sats were in the mid to high 90s. He was tachypneic. They initiated a DuoNeb followed by a single albuterol neb. I also gave him 125 mg of Solu-Medrol. The patient denies any chest pain, chest pressure. He denies any URI type symptoms. He states that the last time he had come to the hospital was a few weeks ago. PFSH Past Medical History Arthritis: Yes Asthma: No Autoimmune Disease: No Blood Disorders: No Anxiety: No Depression: No Heart Rhythm Problems: No Cancer: No Cardiovascular Problems: No High Cholesterol: No Chemotherapy: No Chest Pain: No Congestive Heart Failure: No COPD: No Diabetes: No Diminished Hearing: No Endocrine: No Gastrointestinal Disorders: No Genitourinary: No Hypertension: Yes Immune Disorder: No Implanted Vascular Access Dvce: Yes Musculoskeletal: No Neurologic: No Psychiatric: No Reproductive: No Respiratory: No Radiation Therapy: No Sleep Apnea: No Thyroid Disease: No Past Surgical History Appendectomy: Yes Oral Surgery: Yes (DENTAL IMPLANTS) Tonsillectomy: Yes Other Surgery: Yes Social History Alcohol Use: Yes (2-3 BEERS DAILY) Tobacco Use: No (quit 12 years ago) Substance Use: No Allergies-Medications (Allergen,Severity, Reaction): Coded Allergies: penicillin G (Unverified Allergy, Severe, Hives, 02/18/18) Reported Meds & Prescriptions Reported Meds & Active Scripts Active Xanax (Alprazolam) 0.25 Mg Tab 0.25 Mg PO Q6H PRN Prednisone 10 Mg Tab 10 Mg PO DAILY 4 Days Prednisone 20 Mg Tab 20 Mg PO DAILY Prednisone 20 Mg Tab 20 Mg PO BID Oxygen (O2) Device Liter ELIANA.CANULA CONTINUOUS Oxygen Concentrator Portable Gaseous 2 L/min via Nasal Canula Continuous For 99 months Duoneb (Ipratropium-Albuterol Neb) 0.5-2.5 Mg/3 Ml Neb 1 Nebule INH Q4HR NEB Reported Anoro Ellipta Inh (Umeclidinium/Vilanterol) 62.5-25 Mcg/Act Aero 1 Puff INH DAILY Folic Acid 0.4 Mg Tab 400 Mcg PO DAILY Vytorin (Ezetimibe-Simvastatin) 10-10 Mg Tab 1 Tab PO HS Propranolol (Propranolol HCl) 40 Mg Tab 40 Mg PO Q12HR Review of Systems Except as stated in HPI: all other systems reviewed are Neg General / Constitutional: No: Fever, Chills HENT: No: Headaches, Lightheadedness Cardiovascular: No: Chest Pain or Discomfort, Palpitations Respiratory: Positive: Shortness of Breath, Wheezing, No: Cough Gastrointestinal: No: Nausea, Vomiting, Abdominal Pain Genitourinary: No: Urgency, Frequency, Dysuria Musculoskeletal: No: Weakness, Pain Neurologic: No: Weakness, Dizziness, Headache Physical Exam Narrative GENERAL: Well-nourished, well-developed patient, in mild to moderate respiratory distress. SKIN: Focused skin assessment warm/dry. HEAD: Normocephalic/atraumatic. EYES: No scleral icterus. No injection or drainage. NECK: No JVD or lymphadenopathy. CARDIOVASCULAR: Regular rate and rhythm without murmurs, gallops, or rubs. RESPIRATORY: Breath sounds equal bilaterally. Diffuse expiratory wheezes appreciated in all 4 lung saenz. No rales appreciated. GASTROINTESTINAL: Abdomen soft, non-tender, nondistended. MUSCULOSKELETAL: No cyanosis, or edema. BACK: Nontender without obvious deformity. No CVA tenderness. NEUROLOGICAL: Awake and alert. Cranial nerves II through XII intact. Motor within normal limits. Five out of 5 muscle strength in all muscle groups. Normal speech. Data Data Last Documented VS Vital Signs Date Time Temp Pulse Resp B/P (MAP) Pulse Ox O2 Delivery O2 Flow Rate FiO2 02/19/18 00:28 88 17 149/82 (104) 96 Nasal Cannula 2.00 02/18/18 23:16 98.1 Orders Orders Complete Blood Count With Diff (02/18/18 23:13) Basic Metabolic Panel (Bmp) (02/18/18 23:13) Ckmb (Isoenzyme) Profile (02/18/18 23:13) Troponin I (02/18/18 23:13) Iv Access Insert/Monitor (02/18/18 23:13) Electrocardiogram (02/18/18 23:13) Ecg Monitoring (02/18/18 23:13) Oximetry (02/18/18 23:13) Oxygen Administration (02/18/18 23:13) Chest, Single Ap (02/18/18 23:13) Sodium Chloride 0.9% Flush (Ns Flush) (02/18/18 23:15) Albuterol Neb (Albuterol Neb) (02/18/18 23:15) Labs Laboratory Tests Test 02/18/18 23:15 White Blood Count 8.5 TH/MM3 Red Blood Count 4.04 MIL/MM3 Hemoglobin 13.1 GM/DL Hematocrit 38.8 % Mean Corpuscular Volume 96.0 FL Mean Corpuscular Hemoglobin 32.3 PG Mean Corpuscular Hemoglobin Concent 33.7 % Red Cell Distribution Width 12.9 % Platelet Count 177 TH/MM3 Mean Platelet Volume 7.0 FL Neutrophils (%) (Auto) 53.3 % Lymphocytes (%) (Auto) 27.8 % Monocytes (%) (Auto) 14.0 % Eosinophils (%) (Auto) 4.1 % Basophils (%) (Auto) 0.8 % Neutrophils # (Auto) 4.5 TH/MM3 Lymphocytes # (Auto) 2.4 TH/MM3 Monocytes # (Auto) 1.2 TH/MM3 Eosinophils # (Auto) 0.3 TH/MM3 Basophils # (Auto) 0.1 TH/MM3 CBC Comment DIFF FINAL Differential Comment Blood Urea Nitrogen 8 MG/DL Creatinine 0.61 MG/DL Random Glucose 92 MG/DL Calcium Level 8.7 MG/DL Sodium Level 134 MEQ/L Potassium Level 4.1 MEQ/L Chloride Level 101 MEQ/L Carbon Dioxide Level 26.4 MEQ/L Anion Gap 7 MEQ/L Estimat Glomerular Filtration Rate 128 ML/MIN Total Creatine Kinase 38 U/L Troponin I LESS THAN 0.02 NG/ML [facility] Medical Decision Making Medical Screen Exam Complete: Yes Emergency Medical Condition: Yes Differential Diagnosis COPD exacerbation versus pneumonia versus discitis Narrative Course Mr. Rincon is a 78-year-old male with a history of COPD, who presented here with severe shortness of breath. It started as bronchospasm roughly 1 hour prior to arrival. Patient was unable to get control of it and 911 was called. When patient arrived he was in respiratory discomfort. He received 125 mg of Solu-Medrol and 2 nebulizer treatments first with Atrovent and second was albuterol alone. He was given his third dose of albuterol. The patient had diffuse extra Tory wheezes noted in his lung saenz. On reexamination 12:55 AM , he is much improved and feels back to his baseline. He will be discharged home. He will be started on a steroid taper starting at 40 mg daily 3 days followed by 30 mg daily 3 days followed by 20 mg daily 3 days ending with 10 mg daily 3 days. He will follow-up with his weighmaster lead, Dr. Neel Sanz. He will also follow-up with his primary care doctor Nicole. He is instructed to return if he develops any worsening symptoms. At this point I will not start him on any antibiotics as I do not feel this is infectious. Diagnosis Primary Impression: COPD exacerbation Additional Instructions: Start steroids on the morning of 01/20/2018. Return if worse. Continue using her home nebulizer as needed. Follow-up with Dr. Sanz within a few days. Your prescription has been called into the [facility] at [facility]. Disposition: DISCHARGE HOME Condition: Stable Johnny Herrera MD February 18, 2018 23:43
[2018-02-18 23:46] LABS: TROPONIN I LESS THAN 0.02 NG/ML (0.02-0.05)
[2018-02-19 00:28] VITALS: BP 149/82; PULSE 88; RESP 17; O2SAT 96
[2018-02-19 00:57] VITALS: BP 155/79
--- NOTE | 2018-02-19 18:14 | EKG ---
Date Performed: 02/18/2018 Time Performed: 23:23:43 PTAGE: 78 years EKG: Sinus rhythm MODERATE ST DEPRESSION ABNORMAL ECG PREVIOUS TRACING : 01/29/2018 14.39 Since the previous tracing, no significant change noted DOCTOR: Abby Banda Interpretating Date/Time 02/19/2018 18:13:26
== END 2018-02-19 01:11 | disposition home or self-care (01) ==
LOC: PHED 23:10
DX: J44.1 Chronic obstructive pulmonary disease with (acute) exacerbation (principal); R94.31 Abnormal electrocardiogram [ECG] [EKG]; I10 Essential (primary) hypertension; E78.5 Hyperlipidemia, unspecified; M19.90 Unspecified osteoarthritis, unspecified site; Z87.891 Personal history of nicotine dependence; Z79.899 Other long term (current) drug therapy; Z88.0 Allergy status to penicillin
CPT/HCPCS: 71045; 80048; 82550; 84484; 85025; 93005; 94664; 99285; J7613